=== PATIENT | female | born 1950 ===

== ENCOUNTER → 2022-10-21 14:04 | Outpatient (BNVA) | payer OTHER, SELFPAY | PROVIDERS: PCP Internal Medicine; Visit Provider Psychiatry & Neurology Neurology ==

== ENCOUNTER → 2022-11-25 19:30 | Outpatient (REF) | payer OTHER, SELFPAY | LOC: HO.SL 19:30 | PROVIDERS: Visit Provider Psychiatry & Neurology Neurology | DX: G47.10 Hypersomnia, unspecified (principal); G47.00 Insomnia, unspecified; R06.83 Snoring; G47.61 Periodic limb movement disorder | CPT/HCPCS: 95810 ==

== ENCOUNTER → 2022-11-25 21:16 | Outpatient (BNV) | payer OTHER, SELFPAY | PROVIDERS: Visit Provider Psychiatry & Neurology Neurology | DX: G47.61 Periodic limb movement disorder (principal) | CPT/HCPCS: 95810 ==

== ENCOUNTER 2023-01-21 11:01 | Outpatient (REF) | payer OTHER, SELFPAY ==
--- NOTE | ~2023-01-21 | MR_ITS ---
EXAMINATION: MR BRAIN WITHOUT CONTRAST CLINICAL INFORMATION: Dizziness. Patient off balance. Other symptoms and signs involving cognitive function and awareness. COMPARISON: None available. TECHNIQUE: Multiplanar, multisequence imaging of the brain was performed without contrast. FINDINGS: No diffusion abnormalities are identified to suggest an acute infarct. The ventricles are normal in size. No mass effect or midline shift is seen. Scattered mild white matter signal changes may be due to chronic microangiopathy. The brainstem and cerebellum are normal. There is a small homogeneous, dome-shaped, extra-axial mass along the inner cortical table of the high right frontal bone near the coronal suture measuring 9 mm in diameter. The gradient refocused acquisition demonstrates no pathologic magnetic susceptibility artifact to indicate underlying acute or chronic blood products. No extra-axial fluid collections are seen. The craniovertebral junction, marrow signal, and midline structures are normal. The major intracranial flow voids at the level of the [place] of [place] are preserved. The dural venous sinus flow voids are maintained. There is trace fluid in the dependent left mastoid air cells. [id number] mucosal thickening noted in the paranasal sinuses, more so in the right ethmoid air cells. MR/MR head/brain wo con IMPRESSION: No acute intracranial process. Mild chronic white matter microangiopathy. Incidental 9 mm homogeneous extra-axial nodular lesion along the high right frontal convexity which is nonspecific but is suspected to represent an incidental meningioma. No associated mass effect. [id number] mucosal thickening in the paranasal sinuses.
== END 2023-01-21 11:02 | disposition home or self-care (01) ==
LOC: HO.MRI 11:01
PROVIDERS: PCP Internal Medicine; Visit Provider Psychiatry & Neurology Neurology
DX: R41.89 Other symptoms and signs involving cognitive functions and awareness (principal)
CPT/HCPCS: 70551

== ENCOUNTER 2023-03-25 10:28 | Outpatient (AMB) | payer OTHER, SELFPAY ==
--- NOTE | 2023-03-25 10:32 | A.OFFVIS_ITS ---
Intake Vital Signs 03/25/23 10:44 Weight 110 lb 4 oz BP 120/80 Blood Pressure Location Lt brachial Position Sitting Pulse 74 Pulse Source Pulse Oximeter Pulse Oximetry (%) 99 Oxygen Delivery Method Room Air Intake Visit Reasons: 3m f/u Memory Decline - confirmed Intake Note: F/U Memory District Court Justice Required: Yes District Court Justice Name: Alla Allergies No Known Allergies Allergy (Verified 03/25/23 10:35) HPI HPI Comments History of Present Illness Details 73 y/o female patient presents for follo w up of cognitive problems. A certified supervisor cook house Nisreen [id number] helped with todays evaluation. She states that her memory has been improved. She still drive without problem. Pt has h/o depression and anxiety- she sees a therapist, and her mood is stable. She lives alone and has a PACKAGING ASSOCIATE 8 hrs a week. Her PACKAGING ASSOCIATE helps with cleaning, shopping, cooking etc. She reports she has memory issue especially when she is stressed. Brain MRI report reviewed. No acute intracranial process. Mild chronic white matter microangiopathy. Incidental 9 mm homogeneous extra-axial nodular lesion along the high right frontal convexity which is nonspecific but is suspected to represent an incidental meningioma. No associated mass effect. [id number] mucosal thickening in the paranasal sinuses. Pt has hx of a benign brain lesion which was not followed up. The PSG sleep study result was no evidence of sleep apnea. The AHI was less than 1/hr and oxygen lilliam was 91%. Lab result reviewed, TSH, B12, ESR was WNL. PFSH Medical History Insomnia Hypersomnia Snoring Cognitive decline Arthritis Atrial fibrillation Headache Depression GERD (gastroesophageal reflux disease) HTN (hypertension) Sleep disorder Coarse tremors Osteoporosis Family History Mother Colon cancer Father Prostate cancer Lung cancer Sister Cancer Daughter Cancer Social History Alcohol intake: never Patient Tobacco Use Status: Never used Tobacco Review of Systems Const All systems reviewed & are unremarkable except as noted in HPI and below Physical Exam Vital Signs: Last Vital Signs Pulse 74 03/25/23 10:44 BP 120/80 03/25/23 10:44 Pulse Ox 99 03/25/23 10:44 Oxygen Delivery Method Room Air 03/25/23 10:44 Const General: cooperative, healthy appearing, comfortable and no acute distress Nutritional Appearance: average body habitus Orientation/consciousness: patient oriented x3 Limitations: no limitations Neuro Other: Normal CLOCK DRAWING. General: patient oriented x3 Cranial nerves: Yes Facial sensation intact/muscles of mastication intact, Yes Nystagmus not present, Yes Normal facial strength present, Yes Midline tongue present and Yes Symmetric palate elevation present Cognition (Neuro): normal cognition Gait exam (Neuro): Antalgic gait present Motor exam (neuro): 5/5 motor strength present throughout and Normal motor muscle tone present throughout Deep tendon reflexes (DTR's): Right triceps reflex intensity grade: 2+, Left triceps reflex intensity grade: 2+, Rt Biceps (C5, C6): 2+, Left biceps reflex intensity grade: 2+, Right brachioradialis reflex intensity grade: 2+, Left brachioradialis reflex intensity grade: 2+, Right patellar reflex intensity grade: 3+, Left patellar reflex intensity grade: 3+, Right ankle reflex intensity grade: 3+ and Left ankle reflex intensity grade: 3+ Coordination: [id number] test normal Assessment & Plan Assessment & Plan (1) Cognitive decline: Comment: MCI vs mood related changes Code(s): R41.89 - Other symptoms and signs involving cognitive functions and awareness (2) Snoring: Code(s): R06.83 - Snoring (3) Hypersomnia: Code(s): G47.10 - Hypersomnia, unspecified (4) Insomnia: Code(s): G47.00 - Insomnia, unspecified Plan Continue to follow up with psychiatrist to stabilize mood. Will repeat brain MRI next year. Encouraged patient to increase physical and cognitive activities. Coding Level of Care Code Est Pt Level 4 (04518) Diagnoses Cognitive decline R41.89 Snoring R06.83 Hypersomnia G47.10 Insomnia G47.00
[2023-03-25 10:44] VITALS: BP 120/80; PULSE 74; O2SAT 99
== END 2023-03-25 10:57 | disposition home or self-care (01) ==
PROVIDERS: PCP Internal Medicine; Visit Provider Nurse Practitioner Family
DX: R41.89 Other symptoms and signs involving cognitive functions and awareness (principal); R06.83 Snoring; G47.10 Hypersomnia, unspecified; G47.00 Insomnia, unspecified
CPT/HCPCS: 99214

== ENCOUNTER → 2023-03-25 10:28 | Outpatient (BNVA) | payer OTHER, SELFPAY | PROVIDERS: PCP Internal Medicine; Visit Provider Nurse Practitioner Family | DX: R41.89 Other symptoms and signs involving cognitive functions and awareness (principal); G47.10 Hypersomnia, unspecified; R06.83 Snoring; G47.00 Insomnia, unspecified ==

== ENCOUNTER 2024-03-23 13:54 | Outpatient (AMB) | payer OTHER, SELFPAY ==
[2024-03-23 13:59] VITALS: BP 130/78; PULSE 66; O2SAT 97
--- NOTE | 2024-03-23 13:59 | A.OFFVIS_ITS ---
Vital Signs 03/23/24 13:59 Weight 99 lb BP 130/78 Blood Pressure Location Lt brachial Position Sitting Pulse 66 Pulse Source Pulse Oximeter Pulse Oximetry (%) 97 Oxygen Delivery Method Room Air Intake Visit Reasons: 1 yr f/u appt Second Hand Paper Machine Required: Yes Second Hand Paper Machine Name: Moriah Lopez Information Interpreted: non-clinical & clinical Accompanied by: Self / Same As Patient Allergies No Known Allergies Allergy (Verified 03/23/24 14:09) Medication List - Last Reconciled 03/23/24 by COOPER Allison apixaban (Eliquis) 5 mg PO BID cetirizine 10 mg PO DAILY cholecalciferol (vitamin D3) (Vitamin D3) 50 mcg PO DAILY citalopram 20 mg PO QAM fluticasone propionate 50 mcg/actuation 2 sprays intranasal DAILY gabapentin 300 mg PO BID ipratropium bromide 2 sprays intranasal BID lorazepam 0.5 mg PO QAM meclizine 12.5 mg PO TID PRN metoprolol succinate ER 150 mg PO DAILY mirabegron ER (Myrbetriq) 50 mg PO DAILY mirtazapine 15 mg PO BEDTIME pantoprazole 40 mg PO DAILY quetiapine 25 mg PO BEDTIME HPI Comments Details: 74-yr-old female presents for f/u visit of cognitive s/s and meningioma. Pt reports her cognition is stable. She states she is remembering things well. She is more concerned about the known intracranial meningioma. She had f/u MRI brain last week, which showed stable, if not slightly smaller, meningioma- now 0.7cm. Pt does endorse pain in the top of her head, as well as right sided head/facial pain a/w photophobia, phonophobia, nausea. These headaches occur almsot daily. She does endorse a history of migraine- though migraines used to be very severe in the past. She uses Tylenol prn- helps some but not fully. [facility] Medical History Insomnia Hypersomnia Snoring Cognitive decline Arthritis Atrial fibrillation Headache Depression GERD (gastroesophageal reflux disease) HTN (hypertension) Sleep disorder Coarse tremors Osteoporosis Family History Mother Colon cancer Father Prostate cancer Lung cancer Sister Cancer Daughter Cancer Social History Alcohol intake: never Patient Tobacco Use Status: Never used Tobacco Physical Exam Vital Signs: Last Vital Signs Pulse 66 03/23/24 13:59 BP 130/78 03/23/24 13:59 Pulse Ox 97 03/23/24 13:59 Oxygen Delivery Method Room Air 03/23/24 13:59 Const General: cooperative and no acute distress Orientation/consciousness: patient oriented x3 Resp Effort & Inspection: normal respiratory effort and able to speak in complete sentences Neuro Other: Mild palpable tenderness across vertex of head. General: patient oriented x3 Cranial nerves: Yes CN's II-XII intact bilaterally Cognition (Neuro): normal cognition Motor exam (neuro): 5/5 motor strength present throughout Psych Appearance: grossly normal Mental Status: mental status grossly normal Speech and movement: Normal speech and movement present Affect: normal affect Attitude: cooperative Assessment & Plan Assessment & Plan (1) Migraine without aura: Code(s): G43.009 - Migraine without aura, not intractable, without status migrainosus Category: Medical (2) Cognitive decline: Comment: MCI vs mood related changes Code(s): R41.89 - Other symptoms and signs involving cognitive functions and awareness Category: Medical (3) Intracranial meningioma: Comment: stable Code(s): D32.0 - Benign neoplasm of cerebral meninges Category: Medical Plan Reviewed brain MRI reports and previous brain MRI imaging- stable meningioma w/o mass effect. Monitor clinically. For overall headache management: It is important to practice good self-care, including but not limited to eating a healthy diet, drinking enough fluids (typically 64 oz per day), maintaining a good sleep routine, and engaging in regular physical activity (typically 30-45 minutes of moderate physical activity 5 days per week). For acute headache treatment: It is important to take as needed acute medications at the first sign of headache, however you want to avoid taking most as needed headache too often as this can lead to medication overuse/adaptation headaches. Trial Ubrogepant (Ubrelvy) 100mg tab, 1/2 - 1 tab (50-100mg) at onset of headache, may repeat in 2 hours. Max of 2 tabs (200mg) per 24 hours. May adjunct with OTC Tylenol 650mg q 4 hours prn. Potential adverse effects, include but are not limited to fatigue, nausea, dry mouth, constipation Previous acute migraine medication trials: None Acute migraine medication contraindications: All triptans, DHE d/t HTN, a-fib. NSAIDs d/t apixaban use. For headache prevention medication: Preventative medications should be taken routinely as prescribed for best effect, it may take several weeks to see full effect. Start Riboflavin 400mg qam Continue home Magnesium up to 400-500mg qhs Continue metoprolol succ ER 150mg qd- for HTN/a-fib. Previous migraine prevention medication trials: none other Migraine prevention medication contraindications: TCAs d/t a-fib dx. Medications: New riboflavin (vitamin B2) 400 mg PO DAILY 30 days 30 tabs 6RF ubrogepant (Ubrelvy) take at onset of migraine, may repeat in 2hrs (may take w/ Tylenol) 50 - 100 mg (0.5 - 1 x 100 mg) PO ONCE 30 days PRN 16 tabs 6RF migraine headache Coding Level of Care Code Est Pt Level 4 (29842) Diagnoses Migraine without aura G43.009 Cognitive decline R41.89 Intracranial meningioma D32.0
== END 2024-03-23 14:54 | disposition home or self-care (01) ==
LOC: HO.HSMS 13:54
PROVIDERS: PCP Internal Medicine; Visit Provider Nurse Practitioner Family
DX: G43.009 Migraine without aura, not intractable, without status migrainosus (principal); R41.89 Other symptoms and signs involving cognitive functions and awareness; D32.0 Benign neoplasm of cerebral meninges
CPT/HCPCS: 99214

== ENCOUNTER → 2024-03-23 13:54 | Outpatient (BNVA) | payer OTHER, SELFPAY | PROVIDERS: PCP Internal Medicine; Visit Provider Nurse Practitioner Family | DX: G43.009 Migraine without aura, not intractable, without status migrainosus (principal); R41.89 Other symptoms and signs involving cognitive functions and awareness; D32.0 Benign neoplasm of cerebral meninges | CPT/HCPCS: 99212 ==

== ENCOUNTER 2024-09-19 10:32 | Outpatient (AMB) | payer OTHER, SELFPAY ==
--- NOTE | 2024-09-19 10:39 | MHC.OFFVIS ---
Vital Signs 09/19/24 10:48 Height 5 ft Weight 103 lb BMI 20.1 BP 104/60 Blood Pressure Location Lt brachial Pulse 79 Pulse Source Pulse Oximeter Pulse Oximetry (%) 99 Oxygen Delivery Method Room Air Intake Visit Reasons: 6 mo f/u Intake Note: Patient presents 6 month follow up for Cognitive decline. Media Relations Director Required: Yes Media Relations Director Services: Media Relations Director Present Media Relations Director Name: Adam Hernanedz Accompanied by: Self / Same As Patient Allergies No Known Allergies Allergy (Verified 09/19/24 10:39) HPI Comments Details: 74-yr-old female presents for f/u visit of cognitive s/s and meningioma. 09/14/2024, patient underwent right lung- Flexible and robotic bronchoscopy for mild progression of cluster of nodules in the periphery of the right middle lobe. Patient states that results are pending. Pt is f/b [facility] pulmonology. Pt reports her cognition is stable. She states she is remembering things well. She feels her pulmonary and cardiac medication regimen helps her memory some, but may cause some tiredness Pt does endorse near daily headache, occurring in the top of her head, or right sided head/facial pain a/w photophobia, phonophobia, nausea. States she is not currently taking anything for her headache/migraine attacks. She never received the Ubrelvy, however is open to trying it. [facility] Medical History Insomnia Hypersomnia Snoring Cognitive decline Arthritis Atrial fibrillation Headache Depression GERD (gastroesophageal reflux disease) HTN (hypertension) Sleep disorder Coarse tremors Osteoporosis Family History Mother Colon cancer Father Prostate cancer Lung cancer Sister Cancer Daughter Cancer Social History Alcohol intake: never Patient Tobacco Use Status: Never used Tobacco Physical Exam Vital Signs: Last Vital Signs Pulse 79 09/19/24 10:48 BP 104/60 09/19/24 10:48 Pulse Ox 99 09/19/24 10:48 Oxygen Delivery Method Room Air 09/19/24 10:48 BMI result Body Mass Index 20.1 Const General: cooperative and no acute distress Orientation/consciousness: patient oriented x3 Resp Effort & Inspection: normal respiratory effort and able to speak in complete sentences Neuro General: patient oriented x3 Cranial nerves: Yes CN's II-XII intact bilaterally Cognition (Neuro): normal cognition Motor exam (neuro): 5/5 motor strength present throughout Psych Appearance: grossly normal Mental Status: mental status grossly normal Speech and movement: Normal speech and movement present Affect: normal affect Attitude: cooperative Assessment & Plan Assessment & Plan (1) Migraine without aura: Code(s): G43.009 - Migraine without aura, not intractable, without status migrainosus Category: Medical Qualifiers: Status migrainosus presence: without status migrainosus Intractability: not intractable Qualified Code(s): G43.009 - Migraine without aura, not intractable, without status migrainosus (2) Cognitive decline: Comment: MCI vs mood related changes Code(s): R41.89 - Other symptoms and signs involving cognitive functions and awareness Category: Medical (3) Intracranial meningioma: Comment: stable Code(s): D32.0 - Benign neoplasm of cerebral meninges Category: Medical Plan Brain MRI reports and previous brain MRI imaging- stable meningioma w/o mass effect. Monitor clinically. Plan for follow-up brain MRI to assess status of meningioma in fall. However, may consider repeating MRI sooner based on results of recent pulmonary testing. For overall headache management and cognition support: It is important to practice good self-care, including but not limited to eating a healthy diet, drinking enough fluids (typically 64 oz per day), maintaining a good sleep routine, and engaging in regular physical activity (typically 30-45 minutes of moderate physical activity 5 days per week). For acute headache treatment: It is important to take as needed acute medications at the first sign of headache, however you want to avoid taking most as needed headache too often as this can lead to medication overuse/adaptation headaches. Patient is again advised to trial Ubrogepant (Ubrelvy) 100mg tab, 1/2 - 1 tab (50-100mg) at onset of headache, may repeat in 2 hours. Max of 2 tabs (200mg) per 24 hours. May adjunct with OTC Tylenol 650mg q 4 hours prn. Potential adverse effects, include but are not limited to fatigue, nausea, dry mouth, constipation. We will recent order today Previous acute migraine medication trials: None Acute migraine medication contraindications: All triptans, DHE d/t HTN, a-fib. NSAIDs d/t apixaban use. For headache prevention medication: Preventative medications should be taken routinely as prescribed for best effect, it may take several weeks to see full effect. Continue Riboflavin 400mg qam Continue home Magnesium up to 400-500mg qhs- caused GI upset. Continue metoprolol succ ER 150mg qd- for HTN/a-fib. Previous migraine prevention medication trials: none other Migraine prevention medication contraindications: TCAs d/t a-fib dx. Will follow-up upon review of above and patient to follow-up in clinic in 6 months or sooner prn. Medications: Refilled ubrogepant (Ubrelvy) take at onset of migraine, may repeat in 2hrs (may take w/ Tylenol) 50 - 100 mg (0.5 - 1 x 100 mg) PO ONCE 30 days PRN 16 tabs 6RF migraine headache riboflavin (vitamin B2) 400 mg PO DAILY 30 days 30 tabs 11RF Coding Level of Care Code Est Pt Level 4 (00008) Diagnoses Migraine without aura and without status migrainosus, not intractable G43.009 Status migrainosus presence: without status migrainosus Intractability: not intractable Cognitive decline R41.89 Intracranial meningioma D32.0
[2024-09-19 10:48] VITALS: BP 104/60; PULSE 79; O2SAT 99; BMI 20.1
--- OUTSIDE RECORDS SUMMARY | 2024-09-19 11:55 | XMS_ITS ---
Author Name [facility] Organization Unknown Results Test Name/Text Value Interpretation Date Range Source Clinical Information In CYTO Normal [id number] [facility] Citation Ref Lab Test The technical components of this case were performed at [address] [address] CLIA # [id number] Normal [id number] [facility] History of Medication Use Medication Directions Dispensed Refills Start Date End Date Stat us sodium chloride 0.9 % flush 10 mL [Order 1 Start] Name: Insert peripheral IV Signed Summary: STAT, Once, On Thu09/14/24 at 0617, For 1 occurrence, Preprocedure [Order 1 End] [Order 2 Start] Name: Maintain IV access Signed Summary: Until discontinued, Starting on Thu09/14/24 at 0617, Until Specified, Preprocedure [Order 2 End] [Order 09/14/2024 active spironolactone (ALDACTONE) 25 mg tablet Take 0.5 tablets (12.5 mg total) by mouth 1 (one) time each day. 08/22/2024 active metoprolol succinate (TOPROL-XL) 100 mg 24 hr tablet TOME ALBERT Y MEDIA TABLETAS TODOS LOS BRANDON POR VIA ORAL 07/04/2024 aborted cetirizine (ZyrTEC) 10 mg tablet TAKE 1 TABLET BY MOUTH 1 TIME EACH DAY. 07/04/2024 active ondansetron ODT (ZOFRAN-ODT) 4 mg disintegrating tablet Dissolve 1 tablet (4 mg total) on top of the tongue every 8 (eight) hours if needed for nausea or vomiting. 06/14/2024 active bisacodyL (DULCOLAX) 5 mg EC tablet Take 2 tablets by mouth right before beginning bowel prep. See instructions provided by the office 04/06/2024 active polyethylene glycol (Golytely) 236-22.74-6.74 -5.86 gram solution Take 4L by mouth once for one dose. May substitue any PEG. Starting at 6PM the night before your procedure drink 1 8oz glasses at your own pace until you complete half of the gallon. Finish 2nd half of the gallon 5 hours before your procedure. 04/06/2024 active magnesium gluconate (MAG-G) 27 mg magnesium (500 mg) tablet 03/17/2024 active gabapentin (NEURONTIN) 300 mg capsule Take 1 capsule (300 mg total) by mouth at bedtime. 03/11/2024 active cholecalciferol (VITAMIN D-3) 50 mcg (2,000 unit) capsule Take 1 Capsule by mouth daily. 09/01/2023 active apixaban (Eliquis) 5 mg tablet TOME ALBERT TABLETA DOS VECES AL ELHAM 08/26/2023 active fluticasone propionate (FLONASE) 50 mcg/actuation nasal spray Administer 2 sprays into each nostril if needed. 07/03/2023 active triamcinolone (KENALOG) 0.5 % cream APLIQUE AL ELSIE AFECTADA DOS VECES AL D A CUANDO SEA NECESARIO 06/17/2023 active citalopram (CeleXA) 20 mg tablet TOME ALBERT TABLETA TODOS LOS D EN LA MA JANNY 12/15/2021 active mirtazapine (REMERON) 15 mg tablet Take 1 Tablet by mouth at bedtime. 09/18/2021 active ipratropium (ATROVENT) 21 mcg (0.03 %) nasal spray 1 Manning by Nasal route daily. 09/16/2021 active LORazepam (ATIVAN) 0.5 mg tablet Take 0.5 Tabs by mouth daily as needed for Anxiety. 03/17/2019 active QUEtiapine (SEROquel) 25 mg tablet TOME ALBERT TABLETA TODOS LOS D? AL ACOSTARSE 03/09/2019 active meclizine (ANTIVERT) 12.5 mg tablet Take by mouth as needed. active mirabegron (Myrbetriq) 50 mg tablet extended release 24 hr 24 hr tablet Take 1 tablet (50 mg total) by mouth 1 (one) time each day. active pantoprazole (PROTONIX) 40 mg EC tablet Take 1 tablet (40 mg total) by mouth 1 (one) time each day before breakfast. Do not crush, chew, or split. active Problems Problem Status Onset Date Problem Type Date of Resolution Source Pain active EncounterDiagnosisAct [facility] Chronic nausea active 2013-08-30 ProblemAct [facility] Rhinitis, allergic active 2013-05-30 ProblemAct [facility] Pulmonary nodule 1 cm or greater in diameter active 2022-06-20 ProblemAct [facility] Paroxysmal atrial fibrillation ([facility] V24, [facility] V28) active 2018-05-25 ProblemAct [facility] Dyspnea on exertion active 2021-10-29 ProblemAct [facility] Osteoporosis active 2024-04-04 ProblemAct [facility] Raynaud's syndrome without gangrene active 2015-07-19 ProblemAct [facility] Xerosis cutis active 2010-06-27 ProblemAct [facility] HTN (hypertension) active 2024-04-04 ProblemAct [facility] Meningioma ([facility] V24, [facility] V28) active 2017-09-17 ProblemAct [facility] Fibromyalgia active 2010-05-16 ProblemAct [facility] Severe major depression without psychotic features ([facility] V24, [facility] V28) active 2014-12-06 ProblemAct [facility] Abnormal chest CT active 2021-10-29 ProblemAct [facility] Vitamin D deficiency active 2010-08-27 ProblemAct [facility] Paroxysmal SVT (supraventricular tachycardia) ([facility] V24) active 2015-11-27 ProblemAct [facility] OAB (overactive bladder) active 2017-04-24 ProblemAct [facility] IBS (irritable colon syndrome) active 2012-06-09 ProblemAct [facility] Urine incontinence active 2010-06-27 ProblemAct [facility] Acid reflux active 2012-04-20 ProblemAct [facility] Immunizations Vaccine Date Source Lot Number Status Moderna SARS-CoV-2 COVID-19, mRNA, LNP-S, preservative free 05/26/2022 [facility] completed Influenza trivalent, 0.5mL ( Fluad) 65yo and older 03/24/2022 [id number] completed Td Tetanus diptheria (Tdvax) 7yo and older 09/18/2021 [facility] [id number] completed Moderna SARS-CoV-2 COVID-19, mRNA, LNP-S, preservative free 08/26/2021 [facility] [id number] completed Influenza trivalent, 0.5mL ( Fluad) 65yo and older 05/03/2021 [id number] completed Moderna SARS-CoV-2 COVID-19, mRNA, LNP-S, preservative free 04/09/2021 [facility] [id number] completed Moderna SARS-CoV-2 COVID-19, mRNA, LNP-S, preservative free 09/04/2020 [facility] [id number] completed Influenza trivalent, 0.5mL ( Fluad) 65yo and older 03/15/2020 [id number] completed Pneumococcal polysaccharide 23 valent (Pneumovax 23) 2yo and older 03/23/2019 [facility] [id number] com pleted Influenza Quadravalent, MDCK , 0.5ml, preservative free (Flucelvax) 6mo and older 03/17/2019 [facility] [id number] completed Influenza Quadravalent, MDCK , 0.5ml, preservative free (Flucelvax) 6mo and older 04/20/2018 [facility] [id number] completed Pneumococcal conjugate 13 va lent (Prevnar 13, PCV13) 2mo and older 11/23/2017 [facility] [id number] complet ed Influenza Quadravalent, MDCK , 0.5ml, with preservative (Flucelvax) 6mo and older 04/20/2017 [facility] [id number] completed Influenza trivalent, with pr eservative (Fluzone; Afluria) 6mo and older 04/03/2016 [facility] [id number] completed Influenza trivalent, with pr eservative (Fluzone; Afluria) 6mo and older 03/20/2015 [facility] [id number] completed Influenza trivalent, with pr eservative (Fluzone; Afluria) 6mo and older 02/20/2014 [facility] [id number] completed Influenza trivalent, with pr eservative (Fluzone; Afluria) 6mo and older 01/20/2013 [facility] [id number] completed Influenza trivalent, with pr eservative (Fluzone; Afluria) 6mo and older 03/26/2010 [facility] [id number] completed Tdap Tetanus diptheria acell ular pertussis (Boostrix; Adacel) 7yo and older 03/26/2010 [facility] [id number] completed Encounters Encounter Type Encounter Reason Primary Diagnosis Location Date Ambulatory Pain, unspecified Pain, unspecified [facility] 09/14/2024 Care Team Organization Name Specialty Phone Email Start Date End Da geraldine [facility] Primary [facility] 09/14/2024 [facility] 09/14/2024
--- OUTSIDE RECORDS SUMMARY | 2024-09-19 11:55 | XMS_ITS ---
Author Name MS. Tushar Daniel APRN Address [address] [place] [address] Phone [phone] [facility] Care Team Providers Care Ad Trafficker Name Role Phone Madina Daniel Unavailable [phone] Unavailable Unavailable [phone] Unavailable Unavailable [phone] BAMBI CEJA Unavailable [phone] Reason for Referral Not Available Allergies, adverse reactions, alerts No known allergies History of medication use Medication Class Instructions Start Date End Date Metoprolol Succinate ER 100 mg Tab ER 24hr TAKE 1 AND 1/2 TABLETS POR V A ORAL TODOS LOS D 2021-08-23 No Data Available Mirtazapine 15 mg Tab TOME ALBERT TABLETA T ODOS LOS D AL ACOSTARSE 2021-09-18 No Data Available QUEtiapine Fumarate 25 mg Tab TOME ALBERT T ABLETA TODOS LOS D AL ACOSTARSE 2021-09-18 No Data Available busPIRone 10 mg Tab TOME ALBERT TABLETA KATHRYN S VECES AL D A 2021-09-18 No Data Available Citalopram Hydrobromide 20 m g Tab TOME ALBERT TABLETA TODOS LOS D EN [place] 2021-09-18 No Data Available LORazepam 0.5 mg Tab TOME ALBERT TABLETA TO DOS LOS D EN [place] 2021-06-24 No Data Available Solifenacin Succinate 5 mg Tab TOME ALBERT TABLETA TODOS LOS D 2021-05-07 2022-03-25 Ipratropium Howell 0.03 % Solution SPRAY 2 SPRAYS INTO EACH NOSTRIL DOS VECES AL D A 2021-06-27 No Data Available VITAMIN D3 2,000 UNIT SOFTGEL TOME ALBERT C PSULA TODOS LOS D 2021-05-07 No Data Available Oxybutynin Chloride ER 10 mg Tab ER 24hr TOME ALBERT TABLETA TODOS LOS D 2021-08-14 No Data Available Amoxicillin 875 mg Tab TAKE 1 TABLET (OR AL) 2 TIMES PER DAY FOR 10 DAYS FOR INFECTION 2021-11-12 No Data Available Gabapentin 300 mg Cap TAKE 1 CAP IN THE MORNING AND 2 CAPSULE AT NIGHT 2021-11-13 No Data Available Eliquis 5 mg Tab TOME ALBERT TABLETA DOS VECES AL D A 2021-09-18 No Data Available Meclizine 12.5 mg Tab TAKE 1 TABLET BY M OUTH 3 TIMES DAILY NEEDED FOR DIZZINESS 2021-12-04 No Data Available Myrbetriq 50 mg Tab ER 24hr TOME ALBERT TAB KAT TODOS LOS D SAME TIME EVERY DAY 2021-12-13 No Data Available Tylenol Extra Strength 500 m g Tab 1 tab BID PRN pain 2022-03-25 No Data Available Bacitracin 500 UNIT/GM Oint APPLY TO AFF ECTED NAILS TWICE A DAY. 2022-07-02 No Data Available Betamethasone Valerate 0.1 % Oint APPLY TO LESION BEHIND LEFT KNEE TWICE A DAY 2022-07-02 No Data Available Pantoprazole Sodium 40 mg Ta b delayed rel TOME ALBERT TABLETA TODOS LOS D 2022-07-02 No Data Available Diclofenac Sodium 1 % Gel 2 GRAMS TOPICA LLY TO AFFECTED AREA 4 TIMES PER DAY CUANDO SEA NECESARIO 2022-11-19 No Data Available FLOWFLEX COVID-19 AG HOME TEST USE DIRECTED 2022-07-27 No Data Available Azithromycin 250 mg Tab TAKE 2 TABLETS B Y MOUTH FOR 1 DAY THEN, TAKE 1 TABLET BY MOUTH DAILY FOR 4 DAYS 2022-08-05 No Data Available Cetirizine 10 mg Tab TOME ALBERT TABLETA TO DOS LOS D 2022-09-25 No Data Available Nasonex 24HR 50 MCG/ACT Suspension Nasal 4 sprays intranasally daily (2 sprays in each nostril) 2023-02-13 No Data Available Mometasone Furoate 50 MCG/AC T Suspension Nasal ROCIAR 2 VECES EN CADA [place] DE [place] TODOS LOS BRAND[place] 2023-02-13 No Data Available Famotidine 20 mg Tab TOME ALBERT TABLETA TO DOS [place] BR[place] 2023-03-11 No Data Available Augmentin 875mg/125mg PO take 1 tablet by mouth BID 09-04-28 No Data Available Augmentin 875mg/125mg PO 1 tab orally tw ice daily with meals for 7 days 2023-04-14 No Data Available Triamcinolone Acetonide 0.5 % Crm 1 application topically to affected area 2 times per day as needed 2023-06-17 No Data Available MAGNESIUM GLUC 500 MG TABLET TOME ALBERT MARTÍNEZTA TODOS [place] 2023-07-10 No Data Available Problem List Problem Status Onset Date Resolved Date Passive suicidal ideations; Hx of suicide attempt Acti ve 2022-03-25 N/A Polypharmacy Active 2022-03-25 N/A Hypercoagulability due to atrial fibrillation Active 2022-03-25 N/A Vitamin D deficiency Active 2022-08-04 N/A Osteoarthritis, multiple sites Active 2022-11-19 N/A Non-seasonal allergic rhinit is due to other allergic trigger Active 2023-02-13 N/A Supraventricular tachycardia Active 2022-07-24 N/A GERD (gastroesophageal reflux disease) Active 08-08-19 N/A Other problems related to [facility] facilities and other health care Active 2023-06-05 N/A Chronic eczematous otitis externa of both ears Active 2023-06-17 N/A Chronic obstructive pulmonary disease, unspecified Act ayush 2022-07-24 N/A MDD (major depressive disord er), recurrent severe, without psychosis, Generalized Anxiety Disorder, Moderate, Grief Active 2022-03-25 N/A Urinary incontinence Active 2022-03-25 N/A Thoracic aortic aneurysm Active 2023-07-10 N/A OAB (overactive bladder) Active 2023-07-10 N/A Osteoporosis Active 2023-07-10 N/A Pulmonary nodule Active 2023-07-10 N/A Dementia Active 2023-07-10 N/A Benzodiazepine dependence, c ontinuous andChronic prescription benzodiazepine use Active 2022-03-25 N/A Encounters Encounters Type Facility Date of Service Diagnosis/Complaint Medication List Documented (1159F) [facility], ([place] Medication List Documented (1159F) [facility] Medication List Documented (1159F) [facility] [place] Medication List Documented (1159F) [facility] Major depressive disorder, r ecurrent severe without psychotic featuresGeneralized anxiety disorderAdjustment disorder with depressed moodUnspecified urinary incontinenceLong term (current) use of anticoagulantsParoxysmal atrial fibrillationSupraventricular tachycardiaOther half-way (current) drug therapySuicidal ideationsPersonal history of suicidal behaviorSedative, hypnotic or anxiolytic dependence, uncomplicated No Data Available [facility] Major depressive disorder, r ecurrent severe without psychotic featuresGeneralized anxiety disorderAdjustment disorder with depressed moodSedative, hypnotic or anxiolytic dependence, uncomplicatedOther watermaster (current) drug therapy Functional Status Assessed (1170F) [facility] [place] Functional Status Assessed (1170F) [facility] [place] Functional Status Assessed (1170F) [facility] [place] Functional Status Assessed (1170F) [facility] [place] Functional Status Assessed (1170F) [facility] Functional Status Assessed (1170F) [facility] Functional Status Assessed (1170F) [facility] [place] Functional Status Assessed (1170F) [facility] Major depressive disorder, r ecurrent severe without psychotic featuresGeneralized anxiety disorderAdjustment disorder with depressed moodSuicidal ideationsPersonal history of suicidal behaviorSedative, hypnotic or anxiolytic dependence, uncomplicatedOther thrombophiliaUnspecified atrial fibrillationUnspecified urinary incontinenceOther watermaster (current) drug therapy RN, CN or CP time with patient by phone; use with 1111F, BP, A1c or other CPTII codes [facility] Encounter for other specifie d aftercare RN, CN or CP time with patient by phone; use with 1111F, BP, A1c or other CPTII codes [facility] [place] No Data Available [facility] [place] Major depressive disorder, r ecurrent severe without psychotic featuresGeneralized anxiety disorderAdjustment disorder with depressed moodSuicidal ideationsPersonal history of suicidal behaviorSedative, hypnotic or anxiolytic dependence, uncomplicatedOther half-way (current) drug therapyOther thrombophiliaUnspecified atrial fibrillationUnspecified urinary incontinenceVitamin D deficiency, unspecifiedGastro-esophageal reflux disease without esophagitisChronic obstructive pulmonary disease, unspecifiedSupraventricular tachycardia No Data Available [facility] [place] No Data Available [facility] [place] No Data Available [facility] [place] No Data Available [facility] [place] No Data Available [facility] [place] No Data Available [facility] [place] No Data Available [facility] [place] Other thrombophiliaUnspecifi ed atrial fibrillationUnspecified urinary incontinenceSupraventricular tachycardia No Data Available [facility] [place] No Data Available [facility] [place] No Data Available [facility] [place] No Data Available [facility] [place] No Data Available [facility] [place] No Data Available [facility] [place] Major depressive disorder, r ecurrent severe without psychotic featuresGeneralized anxiety disorderAdjustment disorder with depressed moodSuicidal ideationsPersonal history of suicidal behaviorSedative, hypnotic or anxiolytic dependence, uncomplicatedOther watermaster (current) drug therapyOther thrombophiliaUnspecified atrial fibrillationUnspecified urinary incontinenceSupraventricular tachycardiaChronic obstructive pulmonary disease, unspecifiedGastro-esophageal reflux disease without esophagitisVitamin D deficiency, unspecified No Data Available [facility] [place] No Data Available [facility] No Data Available [facility] No Data Available [facility] No Data Available [facility] No Data Available [facility] Major depressive disorder, r ecurrent severe without psychotic featuresGeneralized anxiety disorderAdjustment disorder with depressed moodSuicidal ideationsPersonal history of suicidal behaviorSedative, hypnotic or anxiolytic dependence, uncomplicatedOther half-way (current) drug therapyOther thrombophiliaUnspecified atrial fibrillationUnspecified urinary incontinenceSupraventricular tachycardiaChronic obstructive pulmonary disease, unspecifiedGastro-esophageal reflux disease without esophagitisVitamin D deficiency, unspecifiedPolyosteoarthritis, unspecified No Data Available [facility]19[place] No Data Available [facility], ([place]) 11/19/2022 No Data Available [facility] No Data Available [facility] Estab. patient 30-39min; chronic exacerbation, 2 stable chronic or 1 acute illness add add modifier 95 for video, (do not use for phone, instead use [id number]) [facility], ([place] 12[place]/20[place] Major depressive disorder, r ecurrent severe without psychotic featuresGeneralized anxiety disorderAdjustment disorder with depressed moodSuicidal ideationsPersonal history of suicidal behaviorSedative, hypnotic or anxiolytic dependence, uncomplicatedOther watermaster (current) drug therapyOther thrombophiliaUnspecified atrial fibrillationUnspecified urinary incontinenceSupraventricular tachycardiaChronic obstructive pulmonary disease, unspecifiedGastro-esophageal reflux disease without esophagitisVitamin D deficiency, unspecifiedPolyosteoarthritis, unspecified Estab. patient 30-39min; chronic exacerbation, 2 stable chronic or 1 acute illness add add modifier 95 for video, (do not use for phone, instead use [id number]) [facility], ([place]) 12/11/20[place] Estab. patient 30-39min; chronic exacerbation, 2 stable chronic or 1 acute illness add add modifier 95 for video, (do not use for phone, instead use [id number]) [facility] Estab. patient 30-39min; chronic exacerbation, 2 stable chronic or 1 acute illness add add modifier 95 for video, (do not use for phone, instead use [id number]) [facility] Estab. patient 30-39min; chronic exacerbation, 2 stable chronic or 1 acute illness add add modifier 95 for video, (do not use for phone, instead use [id number]) [facility] Estab. patient 30-39min; chronic exacerbation, 2 stable chronic or 1 acute illness add add modifier 95 for video, (do not use for phone, instead use [id number]) [facility] Estab. patient 30-39min; chronic exacerbation, 2 stable chronic or 1 acute illness add add modifier 95 for video, (do not use for phone, instead use [id number]) [facility] Estab. patient 30-39min; chronic exacerbation, 2 stable chronic or 1 acute illness add add modifier 95 for video, (do not use for phone, instead use [id number]) [facility] Estab. patient 30-39min; chronic exacerbation, 2 stable chronic or 1 acute illness add add modifier 95 for video, (do not use for phone, instead use [id number]) [facility] Estab. patient 30-39min; chronic exacerbation, 2 stable chronic or 1 acute illness add add modifier 95 for video, (do not use for phone, instead use [id number]) [facility] No Data Available [facility]2023 Unspecified atrial fibrillat ionOther thrombophiliaSupraventricular tachycardiaMajor depressive disorder, recurrent severe without psychotic featuresChronic obstructive pulmonary disease, unspecifiedSedative, hypnotic or anxiolytic dependence, uncomplicatedGeneralized anxiety disorderAdjustment disorder with depressed moodSuicidal ideationsPersonal history of suicidal behaviorOther half-way (current) drug therapyUnspecified urinary incontinenceGastro-esophageal reflux disease without esophagitisVitamin D deficiency, unspecifiedPolyosteoarthritis, unspecifiedOther allergic rhinitis No Data Available [facility] 02[place]23 No Data Available [facility] Major depressive disorder, r ecurrent severe without psychotic featuresGeneralized anxiety disorderAdjustment disorder with depressed moodSuicidal ideationsPersonal history of suicidal behaviorSedative, hypnotic or anxiolytic dependence, uncomplicatedOther half-way (current) drug therapyOther thrombophiliaUnspecified atrial fibrillationUnspecified urinary incontinenceSupraventricular tachycardia, unspecifiedChronic obstructive pulmonary disease, unspecifiedGastro-esophageal reflux disease without esophagitisVitamin D deficiency, unspecifiedPolyosteoarthritis, unspecifiedOther allergic rhinitis No Data Available [facility] 03[place]20[place] No Data Available [facility] No Data Available [facility] No Data Available [facility] No Data Available [facility] No Data Available [facility] Major depressive disorder, r ecurrent severe without psychotic featuresGeneralized anxiety disorderAdjustment disorder with depressed moodSuicidal ideationsPersonal history of suicidal behaviorSedative, hypnotic or anxiolytic dependence, uncomplicatedOther half-way (current) drug therapyOther thrombophiliaUnspecified atrial fibrillationUnspecified urinary incontinenceSupraventricular tachycardia, unspecifiedChronic obstructive pulmonary disease, unspecifiedGastro-esophageal reflux disease without esophagitisVitamin D deficiency, unspecifiedPolyosteoarthritis, unspecifiedOther allergic rhinitisChronic sinusitis, unspecifiedOth bacterial agents as the cause of diseases classd elswhr No Data Available [facility] No Data Available [facility] No Data Available [facility]20[place] No Data Available [facility] No Data Available [facility] ([place] 04/14/20[place] No Data Available [facility] 06/17/2023 Major depressive disorder, r ecurrent severe without psychotic featuresGeneralized anxiety disorderAdjustment disorder with depressed moodSuicidal ideationsPersonal history of suicidal behaviorSedative, hypnotic or anxiolytic dependence, uncomplicatedOther half-way (current) drug therapyOther thrombophiliaUnspecified atrial fibrillationUnspecified urinary incontinenceSupraventricular tachycardia, unspecifiedChronic obstructive pulmonary disease, unspecifiedGastro-esophageal reflux disease without esophagitisVitamin D deficiency, unspecifiedPolyosteoarthritis, unspecifiedOther allergic rhinitisOther problems related to medical facilities and other health careOther otitis externa, bilateralBody mass index (BMI) 21.0-21.9, adult No Data Available [facility] ([place] 06/17/2023 No Data Available [facility] 06/17[place]20[place] No Data Available [facility] [place]/17[place]20[place] No Data Available [facility] [place]/17[place]2023 No Data Available [facility] [place] 06/17[place]20[place] No Data Available [facility] 06/17[place]20[place] No Data Available [facility] [place] 06/17/20[place] Estab. patient 30-39min; chronic exacerbation, 2 stable chronic or 1 acute illness add add modifier 95 for video, (do not use for phone, instead use [id number]) [facility], ([place] 07/10/2023 Major depressive disorder, r ecurrent severe without psychotic featuresGeneralized anxiety disorderAdjustment disorder with depressed moodSuicidal ideationsPersonal history of suicidal behaviorSedative, hypnotic or anxiolytic dependence, uncomplicatedOther watermaster (current) drug therapyOther thrombophiliaUnspecified atrial fibrillationUnspecified urinary incontinenceSupraventricular tachycardia, unspecifiedChronic obstructive pulmonary disease, unspecifiedGastro-esophageal reflux disease without esophagitisVitamin D deficiency, unspecifiedPolyosteoarthritis, unspecifiedOther allergic rhinitisOther problems related to medical facilities and other health careOther otitis externa, bilateralThoracic aortic aneurysm, without rupture, unspecifiedSolitary pulmonary noduleOveractive bladderAge-related osteoporosis without current pathological fractureUnspecified dementia without behavioral disturbance Estab. patient 30-39min; chronic exacerbation, 2 stable chronic or 1 acute illness add add modifier 95 for video, (do not use for phone, instead use [id number]) [facility], ([place] 07[place]20[place] Estab. patient 30-39min; chronic exacerbation, 2 stable chronic or 1 acute illness add add modifier 95 for video, (do not use for phone, instead use 83566-51) [facility] Estab. patient 30-39min; chronic exacerbation, 2 stable chronic or 1 acute illness add add modifier 95 for video, (do not use for phone, instead use 98574-23) [facility], ([place] 07/10/2023 Estab. patient 30-39min; chronic exacerbation, 2 stable chronic or 1 acute illness add add modifier 95 for video, (do not use for phone, instead use 87766-94) [facility], ([place] 07/10/2023 Estab. patient 30-39min; chronic exacerbation, 2 stable chronic or 1 acute illness add add modifier 95 for video, (do not use for phone, instead use [id number]) [facility] 07[place]/20[place] Estab. patient 30-39min; chronic exacerbation, 2 stable chronic or 1 acute illness add add modifier 95 for video, (do not use for phone, instead use [id number]) [facility], ([place]) 07/10/2023 Vital Signs Date of Collection Vitals 2022-04-09 07:26:57 Height - 154.94 cmWe ight - 48.99 kgBody Mass Index (BMI) - 20.41 kg/m2BP Diastolic - 80.0 mm[Hg]BP Systolic - 148.0 mm[Hg]Heart Rate - 79.0 /min 2022-07-28 08:02:42 Height - 154.94 cmWe ight - 48.99 kgBody Mass Index (BMI) - 20.41 kg/m2 2022-09-22 12:53:36 Height - 154.94 cmWe ight - 50.8 kgBody Mass Index (BMI) - 21.16 kg/m2BP Diastolic - 62.0 mm[Hg]BP Systolic - 90.0 mm[Hg]Pain Scale - 3.0 {score} 2022-10-20 08:20:36 Weight - 50.8 kgBody Mass Index (BMI) - 21.16 kg/m2BP Diastolic - 78.0 mm[Hg]BP Systolic - 89.0 mm[Hg]Heart Rate - 103.0 /min 2022-11-19 09:20:40 Weight - 50.8 kgBody Mass Index (BMI) - 21.16 kg/m2BP Diastolic - 89.0 mm[Hg]BP Systolic - 107.0 mm[Hg]Pain Scale - 4.0 {score} 2022-12-11 11:18:40 Weight - 50.8 kgBody Mass Index (BMI) - 21.16 kg/m2BP Diastolic - 67.0 mm[Hg]BP Systolic - 110.0 mm[Hg]Heart Rate - 70.0 /minPain Scale - 3.0 {score} 2023-03-11 07:47:33 Weight - 50.8 kgBody Mass Index (BMI) - 21.16 kg/m2BP Diastolic - 60.0 mm[Hg]BP Systolic - 139.0 mm[Hg]Heart Rate - 79.0 /min 2023-04-14 12:30:17 Weight - 50.8 kgBody Mass Index (BMI) - 21.16 kg/m2Pain Scale - 3.0 {score} 2023-06-17 11:34:19 Weight - 50.8 kgBody Mass Index (BMI) - 21.16 kg/m2BP Diastolic - 82.0 mm[Hg]BP Systolic - 132.0 mm[Hg] 2023-07-10 12:44:55 Weight - 50.8 kgBody Mass Index (BMI) - 21.16 kg/m2BP Diastolic - 82.0 mm[Hg]BP Systolic - 138.0 mm[Hg]Pain Scale - 1.0 {score} Social History Social History Social History Observation Description Effec tive Time Current Smoking Status Never smoker 7 Sex Female History of Procedures Procedures Service Procedure code Service date Servicing provider Phone# Medication List Documented (1159F) 1159F 2022-03-25 No Data Available No Data Griselda ilable Medication Review by prescribing provider or pharmacist documented (1160F) 1160F 2022-03-25 No Data Available No Data Griselda ilable Pain Assessment - Pain Documented on a Pain Scale (1125F) 1125F 2022-03-25 No Data Available No Data Griselda ilable No Data Available [id number] 2022-03-25 No Data Available No Data Available No Data Available [id number] 2022-04-03 No Data Available No Data Available Functional Status Assessed (1170F) 1170F 2022-04-09 No Data Available No Data Avail able Medication Review by prescribing provider or pharmacist documented (1160F) 1160F 2022-04-09 No Data Available No Data Griselda ilable Medication List Documented (1159F) 1159F 2022-04-09 No Data Available No Data Griselda ilable Pain Assessment - Pain Documented on a Pain Scale (1125F) 1125F 2022-04-09 No Data Available No Data Griselda ilable Advance Care Directive Advance care planning discussion documented in the medical record (1158F) 1158F 2022-04-09 No Data Available No Data Availa ble SBP >= 140 3077F 2022-04-09 No Data Available No Data Available DBP 80-89 (3079F) 3079F 2022-04-09 No Data Available No Data Available Estab. patient 20-29min; 1 stable chronic or 2 minor; add add modifier 95 for video, modifier 93 for phone [id number] 2022-04-09 No Data Available No Data Availa ble RN, CN or CP time with patient by phone; use with 1111F, BP, A1c or other CPTII codes 55752 2022-07-18 No Data Available No Data Avai lable Medications prescribed in hospital were reviewed and reconciled against what they were taking prior to admission during today's visit. (1111F) 1111F 2022-07-18 No Data Available No Data Availa ble No Data Available [id number] 2022-07-28 No Data Available No Data Available Medication List Documented (1159F) 1159F 2022-07-28 No Data Available No Data Griselda ilable Medication Review by prescribing provider or pharmacist documented (1160F) 1160F 2022-07-28 No Data Available No Data Grieslda ilable Functional Status Assessed (1170F) 1170F 2022-07-28 No Data Available No Data Avail able Pain Assessment - Pain Documented on a Pain Scale (1125F) 1125F 2022-07-28 No Data Available No Data Griselda ilable Advance Care Directive Advance care planning discussion documented in the medical record (1158F) 1158F 2022-07-28 No Data Available No Data Availa ble BMI obtained (3008F) 3008F 2022-07-28 No Data Availab le No Data Available No Data Available [id number] 2022-09-22 No Data Available No Data Available Medication List Documented (1159F) 1159F 2022-09-22 No Data Available No Data Griselda ilable SBP < 130 (3074F) 3074F 2022-09-22 No Data Available No Data Available DBP <80 (3078F) 3078F 2022-09-22 No Data Available No Data Available BMI obtained (3008F) 3008F 2022-09-22 No Data Availab le No Data Available Pain Assessment - Pain Documented on a Pain Scale (1125F) 1125F 2022-09-22 No Data Available No Data Griselda ilable No Data Available [id number] 2022-10-20 No Data Available No Data Available Medication List Documented (1159F) 1159F 2022-10-20 No Data Available No Data Griselda ilable Pain Assessment - NO pain present (1126F) 1126F 2022-10-20 No Data Available No Data A vailable BMI obtained (3008F) 3008F 2022-10-20 No Data Availab le No Data Available SBP < 130 (3074F) 3074F 2022-10-20 No Data Available No Data Available DBP <80 (3078F) 3078F 2022-10-20 No Data Available No Data Available No Data Available [id number] 2022-11-19 No Data Available No Data Available Pain Assessment - Pain Documented on a Pain Scale (1125F) 1125F 2022-11-19 No Data Available No Data Griselda ilable BMI obtained (3008F) 3008F 2022-11-19 No Data Availab le No Data Available Medication List Documented (1159F) 1159F 2022-11-19 No Data Available No Data Griselda ilable Functional Status Assessed (1170F) 1170F 2022-11-19 No Data Available No Data Avail able Estab. patient 30-39min; chronic exacerbation, 2 stable chronic or 1 acute illness add add modifier 95 for video, (do not use for phone, instead use [id number]) 30071 2022-12-11 No Data Available No Data Availa ble Medication List Documented (1159F) 1159F 2022-12-11 No Data Available No Data Griselda ilable Medication Review by prescribing provider or pharmacist documented (1160F) 1160F 2022-12-11 No Data Available No Data Griselda ilable Pain Assessment - Pain Documented on a Pain Scale (1125F) 1125F 2022-12-11 No Data Available No Data Griselda ilable BMI obtained (3008F) 3008F 2022-12-11 No Data Availab le No Data Available Advance Care Directive Advance care planning discussion documented in the medical record (1158F) 1158F 2022-12-11 No Data Available No Data Availa ble Advance care planning discussed and documented ? advance care plan or surrogate decision-maker was documented in the medical record. (1123F) 1123F 2022-12-11 No Data Available No Data Availa ble DBP <80 (3078F) 3078F 2022-12-11 No Data Available No Data Available SBP < 130 (3074F) 3074F 2022-12-11 No Data Available No Data Available Functional Status Assessed (1170F) 1170F 2022-12-11 No Data Available No Data Avail able No Data Available [id number] 2023-02-13 No Data Available No Data Available Medication List Documented (1159F) 1159F 2023-02-13 No Data Available No Data Griselda ilable No Data Available [id number] 2023-03-11 No Data Available No Data Available DBP <80 (3078F) 3078F 2023-03-11 No Data Available No Data Available SBP 130-139 (3075F) 3075F 2023-03-11 No Data Availabl e No Data Available Functional Status Assessed (1170F) 1170F 2023-03-11 No Data Available No Data Avail able Pain Assessment - NO pain present (1126F) 1126F 2023-03-11 No Data Available No Data A vailable BMI obtained (3008F) 3008F 2023-03-11 No Data Availab le No Data Available No Data Available [id number] 2023-04-14 No Data Available No Data Available Pain Assessment - Pain Documented on a Pain Scale (1125F) 1125F 2023-04-14 No Data Available No Data Griselda ilable Functional Status Assessed (1170F) 1170F 2023-04-14 No Data Available No Data Avail able Medication List Documented (1159F) 1159F 2023-04-14 No Data Available No Data Griselda ilable Advance Care Directive Advance care planning discussion documented in the medical record (1158F) 1158F 2023-04-14 No Data Available No Data Availa ble BMI obtained (3008F) 3008F 2023-04-14 No Data Availab le No Data Available No Data Available [id number] 2023-06-17 No Data Available No Data Available SBP 130-139 (3075F) 3075F 2023-06-17 No Data Availabl e No Data Available DBP 80-89 (3079F) 3079F 2023-06-17 No Data Available No Data Available BMI obtained (3008F) 3008F 2023-06-17 No Data Availab le No Data Available Functional Status Assessed (1170F) 1170F 2023-06-17 No Data Available No Data Avail able Pain Assessment - NO pain present (1126F) 1126F 2023-06-17 No Data Available No Data A vailable Medication List Documented (1159F) 1159F 2023-06-17 No Data Available No Data Griselda ilable Advance Care Directive Advance care planning discussion documented in the medical record (1158F) 1158F 2023-06-17 No Data Available No Data Availa ble Estab. patient 30-39min; chronic exacerbation, 2 stable chronic or 1 acute illness add add modifier 95 for video, (do not use for phone, instead use [id number]) 66465 2023-07-10 No Data Available No Data Availa ble Medication List Documented (1159F) 1159F 2023-07-10 No Data Available No Data Griselda ilable Medication Review by prescribing provider or pharmacist documented (1160F) 1160F 2023-07-10 No Data Available No Data Griselda ilable Pain Assessment - Pain Documented on a Pain Scale (1125F) 1125F 2023-07-10 No Data Available No Data Griselda ilable BMI obtained (3008F) 3008F 2023-07-10 No Data Availab le No Data Available DBP 80-89 (3079F) 3079F 2023-07-10 No Data Available No Data Available SBP 130-139 (3075F) 3075F 2023-07-10 No Data Availabl e No Data Available Functional Status Functional Category Effective Dates Cognition Status: x3 2022-08-04 ADL: Bathing Needs Assistanc e , Dressing Needs Assistance , Eating Independent , Ambulation Independent , Transferring Independent and Toileting Needs Assistance 2022-04-09 IADL: Medication Needs Jacklyn tance , Meal Prep Needs Assistance and Shopping Needs Assistance 2022-04-09 Falls in last 6 Months: no 2023-07-10 Mental Status Status Date aox3 2022-07-28 Assessments Date of Service Assessments 2022-03-25 12:43:34 Consulting w pharm d oc, consulting w psych doc, social work coordinator and CN aware of patient's status and will reach out.FU in 1 week for video callMDD (major depressive disorder), recurrent severe, without psychosis, Generalized Anxiety Disorder, Moderate, GriefPassive suicidal ideations; Hx of suicide attemptBenzodiazepine dependence, continuous; Chronic prescription benzodiazepine usePolypharmacyParoxysmal atrial fibrillation; Supraventricular tachycardia; AnticoagulatedUrinary incontinence 2022-04-09 07:26:57 MDD (major depressiv e disorder), recurrent severe, without psychosis, Generalized Anxiety Disorder, Moderate, Grief [F33.2, F41.1, F43.21]> PHQ-9: 19 - Moderately severe.JANNA-7: 13 - ModerateHas had grief/deaths in the family, several in the last 2-3 years f close relatives.Reports suicide attempt, distant, circa 2001. BuspironeCitalopramLorazepamMirtazapineQuetiapineSees or talks to therapist every other week, psych every 3 months.She is doing much better; her depression has lessened. Dtr Nadiya is with her and pt seems pleased about that.Spoke to psychiatrist's office re polypharmacy - RN will relay information to MD. She may not be able to see MD for several weeks or up to 2 months so she will ask her therapist to communicate w psychiatrist.Passive suicidal ideations; Hx of suicide attempt [R45.851, Z91.51]> Circa 1999 - tried to overdose/poison, was in hospital at least overnight. No attempts since.Denies plans, denies active thoughts.Safety plan:- When she has thoughts, tries to distract and occupy herself.- Thinks about her daughters - would not want to hurt them so would not go through with it to spare them the pain.- Emergency contacts, in crisis:-- Daughter Bambi Bentley - [phone]-- 988 suicide and crisis hotline - ask for Kazakh speaker-- Her sister Sister Trina lives next door -- [facility] -- Has friends from judaism whom she can call and on whom she leans.-- Contracts to reach out to us if she has active SIIn [place]:--[place]:- Cuando le den pensamientos malos, trate de distraerse.- Piense en xi hijas y melodie no quiere herirlas- Puede llamar:- 988 line especial de crisis, pida alguien en espanol- Plascencia hija Bambi Bentley - [phone]- Plascencia hermana Trina esta al lado- Xi amigas y amigos de la nazario- [facility] - Nos ponemos de acuerdo que nos va a llamar si tiene pensamientos de hacerse jacinta, y que va a venir a nuestra ileana la semana proxima.Benzodiazepine dependence, continuous; Chronic prescription benzodiazepine use [F13.20, Z81.116]> Safety concerns discussed at length.Risk of sedation discussed.Risk in using along w many other sedating medications.Pt verbalized understanding.She has a psychiatrist and a therapist.Consulting w pharm doc and psych MD.Polypharmacy [S67.953]> - Concern about taking multiple PRODUCTION SU[employer] CONSULTANT depressants, especially in a patient with PASSIVE SI ad a (distant) hx of suicide attempt by ingesting substances (20+ years ago). Patient has contracted for safety, has safety plan, denies active SI, denies suicide plan.- Concern about taking multiple Anticholinergic agents- Omeprazole may increase serum concentration of Citalopram. Per UpToDate: Limit citalopram dose to a maximum of 20 mg/day if used with omeprazole. Patients using this combination should be monitored closely for evidence of citalopram toxicity (eg, serotonin syndrome, QT prolongation, etc.). Patient is taking 20 mg Citalopram.- Consulting w Pharm Doc, consulting with Psych Doc. - Safety discussed w pt. She talks to psychiatris Q3 months, encouraging to speak to her sooner. FU w pt in 1 week, CN and Robotics Specialist aware. CN will reach out.Hypercoagulability due to atrial fibrillation [D68.69, I48.91]> On EliquisAware of anticoag risksUrinary incontinence [R32]> Taking MyrbetriqFollowed by [facility] 2022-07-28 08:02:42 MDD (major depressiv e disorder), recurrent severe, without psychosis, Generalized Anxiety Disorder, Moderate, GriefPassive suicidal ideations; Hx of suicide attemptBenzodiazepine dependence, continuous; Chronic prescription benzodiazepine usePolypharmacyHypercoagulability due to atrial fibrillationUrinary incontinenceVitamin D deficiencyGERD (gastroesophageal reflux disease)Chronic obstructive pulmonary disease, unspecifiedSupraventricular tachycardia 2022-09-22 12:53:36 Hypercoagulability d ue to atrial fibrillationUrinary incontinenceSupraventricular tachycardia 2022-10-20 08:20:36 MDD (major depressiv e disorder), recurrent severe, without psychosis, Generalized Anxiety Disorder, Moderate, GriefPassive suicidal ideations; Hx of suicide attemptBenzodiazepine dependence, continuous; Chronic prescription benzodiazepine usePolypharmacyHypercoagulability due to atrial fibrillationUrinary incontinenceSupraventricular tachycardiaChronic obstructive pulmonary disease, unspecifiedGERD (gastroesophageal reflux disease)Vitamin D deficiency 2022-11-19 09:20:40 MDD (major depressiv e disorder), recurrent severe, without psychosis, Generalized Anxiety Disorder, Moderate, GriefPassive suicidal ideations; Hx of suicide attemptBenzodiazepine dependence, continuous; Chronic prescription benzodiazepine usePolypharmacyHypercoagulability due to atrial fibrillationUrinary incontinenceSupraventricular tachycardiaChronic obstructive pulmonary disease, unspecifiedGERD (gastroesophageal reflux disease)Vitamin D deficiencyOsteoarthritis, multiple sites 2022-12-11 11:18:40 MDD (major depressiv e disorder), recurrent severe, without psychosis, Generalized Anxiety Disorder, Moderate, GriefPassive suicidal ideations; Hx of suicide attemptBenzodiazepine dependence, continuous; Chronic prescription benzodiazepine usePolypharmacyHypercoagulability due to atrial fibrillationUrinary incontinenceSupraventricular tachycardiaChronic obstructive pulmonary disease, unspecifiedGERD (gastroesophageal reflux disease)Vitamin D deficiencyOsteoarthritis, multiple sites 2023-02-13 13:01:55 MDD (major depressiv e disorder), recurrent severe, without psychosis, Generalized Anxiety Disorder, Moderate, GriefPassive suicidal ideations; Hx of suicide attemptBenzodiazepine dependence, continuous; Chronic prescription benzodiazepine usePolypharmacyHypercoagulability due to atrial fibrillationUrinary incontinenceSupraventricular tachycardiaChronic obstructive pulmonary disease, unspecifiedGERD (gastroesophageal reflux disease)Vitamin D deficiencyOsteoarthritis, multiple sitesNon-seasonal allergic rhinitis due to other allergic trigger 2023-03-11 07:47:33 MDD (major depressiv e disorder), recurrent severe, without psychosis, Generalized Anxiety Disorder, Moderate, GriefPassive suicidal ideations; Hx of suicide attemptBenzodiazepine dependence, continuous; Chronic prescription benzodiazepine usePolypharmacyHypercoagulability due to atrial fibrillationUrinary incontinenceSupraventricular tachycardiaChronic obstructive pulmonary disease, unspecifiedGERD (gastroesophageal reflux disease)Vitamin D deficiencyOsteoarthritis, multiple sitesNon-seasonal allergic rhinitis due to other allergic trigger 2023-04-14 12:30:17 MDD (major depressiv e disorder), recurrent severe, without psychosis, Generalized Anxiety Disorder, Moderate, GriefPassive suicidal ideations; Hx of suicide attemptBenzodiazepine dependence, continuous; Chronic prescription benzodiazepine usePolypharmacyHypercoagulability due to atrial fibrillationUrinary incontinenceSupraventricular tachycardiaChronic obstructive pulmonary disease, unspecifiedGERD (gastroesophageal reflux disease)Vitamin D deficiencyOsteoarthritis, multiple sitesNon-seasonal allergic rhinitis due to other allergic triggerBacterial sinusitis 2023-06-17 11:34:19 MDD (major depressiv e disorder), recurrent severe, without psychosis, Generalized Anxiety Disorder, Moderate, GriefPassive suicidal ideations; Hx of suicide attemptBenzodiazepine dependence, continuous; Chronic prescription benzodiazepine usePolypharmacyHypercoagulability due to atrial fibrillationUrinary incontinenceSupraventricular tachycardiaChronic obstructive pulmonary disease, unspecifiedGERD (gastroesophageal reflux disease)Vitamin D deficiencyOsteoarthritis, multiple sitesNon-seasonal allergic rhinitis due to other allergic triggerOther problems related to medical facilities and other health careChronic eczematous otitis externa of both ears 2023-07-10 12:44:55 MDD (major depressiv e disorder), recurrent severe, without psychosis, Generalized Anxiety Disorder, Moderate, GriefPassive suicidal ideations; Hx of suicide attemptBenzodiazepine dependence, continuous; Chronic prescription benzodiazepine usePolypharmacyHypercoagulability due to atrial fibrillationUrinary incontinenceSupraventricular tachycardiaChronic obstructive pulmonary disease, unspecifiedGERD (gastroesophageal reflux disease)Vitamin D deficiencyOsteoarthritis, multiple sitesNon-seasonal allergic rhinitis due to other allergic triggerOther problems related to medical facilities and other health careChronic eczematous otitis externa of both earsThoracic aortic aneurysmPulmonary noduleOAB (overactive bladder)OsteoporosisDementia Plan of Care Date of Service Plans 2022-03-25 12:43:34 Medication Review by prescribing provider or pharmacist documented (1160F)Medication List Documented (1159F)Pain Assessment - Pain Documented (1125F)Pain Assessment - Pain Documented (1125F)Televideo new patient,40-59min; chronic exacerbation, 2 stable chronic or 1 acute illness add modifier 95Continue to see PCP. Follow-up with [facility] as needed for any acute or disease education needs that may arise.PHQ-9: 19 - Moderately severe.JANNA-7: 13 - ModerateHas had grief/deaths in the family, several in the last 2-3 years f close relatives.Reports suicide attempt, distant, circa 2001. BuspironeCitalopramLorazepamMirtazapineQuetiapineSees or talks to therapist every other week, psych every 3 monthsCirca 1999 - tried to overdose/poison, was in hospital at least overnight. No attempts since.Denies plans, denies active thoughts.Safety plan:- When she has thoughts, tries to distract and occupy herself.- Thinks about her daughters - would not want to hurt them so would not go through with it to spare them the pain.- Emergency contacts, in crisis:-- Daughter Bambi Bentley - [phone]-- 988 suicide and crisis hotline - ask for Kazakh speaker-- Her sister Sister Trina lives next door -- Can call [facility] 08/12 at -- Has friends from judaism whom she can call and on whom she leans.-- Contracts to reach out to us if she has active SIIn [place]:--[place]:- Cuando le den pensamientos malos, trate de distraerse.- Piense en xi hijas y melodie no quiere herirlas- Puede llamar:- 988 line especial de crisis, pida alguien en espanol- Plascencia hija Bambi Bentley - [phone]- Plascencia hermana Trina esta al lado- Xi amigas y amigos de la nazario- [facility] - Nos ponemos de acuerdo que nos va a llamar si tiene pensamientos de hacerse jacinta, y que va a venir a nuestra ileana la semana proxima.Safety concerns discussed at length.Risk of sedation discussed.Risk in using along w many other sedating medications.Pt verbalized understanding.She has a psychiatrist and a therapist.Consulting w pharm doc and psych MD.- Concern about taking multiple [employer] SU[employer]SULTANT depressants, especially in a patient with PASSIVE SI ad a (distant) hx of suicide attempt by ingesting substances (20+ years ago). Patient has contracted for safety, has safety plan, denies active SI, denies suicide plan.- Concern about taking multiple Anticholinergic agents- Omeprazole may increase serum concentration of Citalopram. Per UpToDate: Limit citalopram dose to a maximum of 20 mg/day if used with omeprazole. Patients using this combination should be monitored closely for evidence of citalopram toxicity (eg, serotonin syndrome, QT prolongation, etc.). Patient is taking 20 mg Citalopram.- Consulting w Pharm Doc, consulting with Psych Doc. - Safety discussed w pt. She talks to psychiatris Q3 months, encouraging to speak to her sooner. FU w pt in 1 week, CN and Robotics Specialist aware. CN will reach out.On EliquisAware of anticoag risksTaking Venitallowed by [facility] 2022-04-09 07:26:57 As above.Will talk t o therapist re polypharmacy in order to get feedback from psychiatrist.Call [facility] if any issues or questions, 08/12.FU 1 month or PRN.All questions answered.1 mo 2022-07-28 08:02:42 Medication Review by prescribing provider or pharmacist documented (1160F)Medication List Documented (1159F)Functional Status Assessed (1170F)Advance Care Directive Advance care planning discussion documented in the medical record (1158F)BMI obtained (3008F)sbdbTelevideo 30-39min; chronic exacerbation, 2 stable chronic or 1 acute illness add modifier 95Pain Assessment - Pain Documented (1125F)Continue to see PCP. [facility] or disease education needs that may arise.PHQ-9: 19 - Moderately severe.JANNA-7: 13 - ModerateHas had grief/deaths in the family, several in the last 2-3 years f close relatives.Reports suicide attempt, distant, circa 2001. BuspironeCitalopramLorazepamMirtazapineQuetiapineSees or talks to therapist every other week, psych every 3 months.She is doing much better; her depression has lessened. Dtr Nadiya is with her and pt seems pleased about that.Spoke to psychiatrist's office re polypharmacy - RN will relay information to MD. She may not be able to see MD for several weeks or up to 2 months so she will ask her therapist to communicate w psychiatrist.Circa 1999 - tried to overdose/poison, was in hospital at least overnight. No attempts since.Denies plans, denies active thoughts.Safety plan:- When she has thoughts, tries to distract and occupy herself.- Thinks about her daughters - would not want to hurt them so would not go through with it to spare them the pain.- Emergency contacts, in crisis:-- Daughter Bambi Bentley - [phone]-- 771 suicide and crisis hotline - ask for Kazakh speaker-- Her sister Sister Trina lives next door -- Can call [facility] 08/12 at -- Has friends from judaism whom she can call and on whom she leans.-- Contracts to reach out to us if she has active SIIn [place]:--[place]AN [place]:- Cuando le den pensamientos malos, trate de distraerse.- Piense en xi hijas y melodie no quiere herirlas- Puede llamar:- 988 line especial de crisis, pida alguien en espanol- Plascencia hija Bambi Bentley - [phone]- Plascencia hermana Trina esta al lado- Xi amigas y amigos de la nazario- A [facility] a - Nos ponemos de acuerdo que nos va a llamar si tiene pensamientos de hacerse jacinta, y que va a venir a nuestra ileana la semana proxima.Safety concerns discussed at length.Risk of sedation discussed.Risk in using along w many other sedating medications.Pt verbalized understanding.She has a psychiatrist and a therapist.Consulting w pharm doc and psych MD.- Concern about taking multiple PR[employer] SU[employer]SULTANT depressants, especially in a patient with PASSIVE SI ad a (distant) hx of suicide attempt by ingesting substances (20+ years ago). Patient has contracted for safety, has safety plan, denies active SI, denies suicide plan.- Concern about taking multiple Anticholinergic agents- Omeprazole may increase serum concentration of Citalopram. Per UpToDate: Limit citalopram dose to a maximum of 20 mg/day if used with omeprazole. Patients using this combination should be monitored closely for evidence of citalopram toxicity (eg, serotonin syndrome, QT prolongation, etc.). Patient is taking 20 mg Citalopram.- Consulting w Pharm Doc, consulting with Psych Doc. - Safety discussed w pt. She talks to psychiatris Q3 months, encouraging to speak to her sooner. FU w pt in 1 week, CN and Robotics Specialist aware. CN will reach out.On EliquisAware of anticoag risksTaking MyrbetriqFollowed by [facility]RX: vitamin d supplement follows with PCPstable RX: omeprazole, protonixfollows with PulmRX: ipratropiumRX: metoprololstablefollows with cards 2022-09-22 12:53:36 Phone (patient, pare nt, or guardian); 5-10 minutes of medical discussion (no modifier 95)Continue to see PCP. Follow-up with [facility] as needed for any acute or disease education needs that may arise 08/12.On Eliquis, metoprololfollows with cards and PCPAware of anticoag risksTaking Myrbetriq, oxybutuninFollowed by UroRX: metoprololstablefollows with cards 2022-10-20 08:20:36 Phone (patient, pare nt, or guardian); 5-10 minutes of medical discussion (no modifier 95)Continue to see PCP. Follow-up with [facility] as needed for any acute or disease education needs that may arise 08/12.PHQ-9: 19 - Moderately severe.JANNA-7: 13 - ModerateHas had grief/deaths in the family, several in the last 2-3 years f close relatives.Reports suicide attempt, distant, circa 2001. BuspironeCitalopramLorazepamMirtazapineQuetiapineSees or talks to therapist every other week, psych every 3 months.She is doing much better; her depression has lessened. Dtr Nadiya is with her and pt seems pleased about that.Circa 1999 - tried to overdose/poison, was in hospital at least overnight. No attempts since.Denies plans, denies active thoughts.Safety plan:- When she has thoughts, tries to distract and occupy herself.- Thinks about her daughters - would not want to hurt them so would not go through with it to spare them the pain.- Emergency contacts, in crisis:-- Daughter Bambi Bentley - [phone]-- [phone] suicide and crisis hotline - ask for Kazakh speaker-- Her sister Sister Trina lives next door -- Can call [facility] 08/12 at -- Has friends from judaism whom she can call and on whom she leans.-- Contracts to reach out to us if she has active SIIn [place]:--[place]:- Cuando le den pensamientos malos, trate de distraerse.- Piense en xi hijas y melodie no quiere herirlas- Puede llamar:- 988 line especial de crisis, pida alguien en espanol- Plascencia hija Bambi Bentley - [phone]- Plascencia hermana Trina esta al lado- Xi amigas y amigos de la nazario- A [facility] a - Nos ponemos de acuerdo que nos va a llamar si tiene pensamientos de hacerse jacinta, y que va a venir a nuestra ileana la semana proxima.Safety concerns discussed at length.Risk of sedation discussed.Risk in using along w many other sedating medications.Pt verbalized understanding.She has a psychiatrist and a therapist.Consulting w pharm doc and psych MD.RX: lorazepam- Concern about taking multiple PRODUCTION SU[employer] CONSULTANT depressants, especially in a patient with PASSIVE SI ad a (distant) hx of suicide attempt by ingesting substances (20+ years ago). Patient has contracted for safety, has safety plan, denies active SI, denies suicide plan.- Concern about taking multiple Anticholinergic agents- Omeprazole may increase serum concentration of Citalopram. Per UpToDate: Limit citalopram dose to a maximum of 20 mg/day if used with omeprazole. Patients using this combination should be monitored closely for evidence of citalopram toxicity (eg, serotonin syndrome, QT prolongation, etc.). Patient is taking 20 mg Citalopram.- Consulting w Pharm Doc, consulting with Psych Doc. - Safety discussed w pt. She talks to psychiatris Q3 months, encouraging to speak to her sooner. FU w pt in 1 week, CN and Robotics Specialist aware. CN will reach out.On Eliquis, metoprololfollows with cards and PCPAware of anticoag risksTaking Myrbetriq, oxybutuninFollowed by [facility]: metoprololstablefollows with cards10/20/22: reports low bp/symptomatic x 1 week. Denies CP or SOB. reports she finished a holter monitor 2 week series before symptoms occurred. Advised to call cardiology today and make in person appointment for urgent evaluation. SHe is compliant with metoprololfollows with PulmRX: ipratropiumstable RX: omeprazole, protonixRX: vitamin d supplement follows with PCP 2022-11-19 09:20:40 Phone (patient, pare nt, or guardian); 5-10 minutes of medical discussion (no modifier 95)Continue to see PCP. Follow-up with [facility] as needed for any acute or disease education needs that may arise 08/12.PHQ-9: 19 - Moderately severe.JANNA-7: 13 - ModerateHas had grief/deaths in the family, several in the last 2-3 years f close relatives.Reports suicide attempt, distant, circa 2001. BuspironeCitalopramLorazepamMirtazapineQuetiapineSees or talks to therapist every other week, psych every 3 months.She is doing much better; her depression has lessened. Dtr Nadiya is with her and pt seems pleased about that.Circa 1999 - tried to overdose/poison, was in hospital at least overnight. No attempts since.Denies plans, denies active thoughts.Safety plan:- When she has thoughts, tries to distract and occupy herself.- Thinks about her daughters - would not want to hurt them so would not go through with it to spare them the pain.- Emergency contacts, in crisis:-- Daughter Bambi Bentley - [phone]-- 988 suicide and crisis hotline - ask for Kazakh speaker-- Her sister Sister Trina lives next door -- Can call [facility] 08/12 at -- Has friends from judaism whom she can call and on whom she leans.-- Contracts to reach out to us if she has active SIIn [place]:--PLAN DE SEGURIDAD:- Cuando le den pensamientos malos, trate de distraerse.- Piense en xi hijas y melodie no quiere herirlas- Puede llamar:- 988 line especial de crisis, pida alguien en espanol- Plascencia hija Bambi Bentley - [phone]- Plascencia hermana Trina esta al lado- Xi amigas y amigos de la nazario- A [facility] a - Nos ponemos de acuerdo que nos va a llamar si tiene pensamientos de hacerse jacinta, y que va a venir a nuestra ileana la semana proxima.Safety concerns discussed at length.Risk of sedation discussed.Risk in using along w many other sedating medications.Pt verbalized understanding.She has a psychiatrist and a therapist.Consulting w pharm doc and psych MD.RX: lorazepam- Concern about taking multiple PR[employer] SU[employer] CONSULTANT depressants, especially in a patient with PASSIVE SI ad a (distant) hx of suicide attempt by ingesting substances (20+ years ago). Patient has contracted for safety, has safety plan, denies active SI, denies suicide plan.- Concern about taking multiple Anticholinergic agents- Omeprazole may increase serum concentration of Citalopram. Per UpToDate: Limit citalopram dose to a maximum of 20 mg/day if used with omeprazole. Patients using this combination should be monitored closely for evidence of citalopram toxicity (eg, serotonin syndrome, QT prolongation, etc.). Patient is taking 20 mg Citalopram.- Consulting w Pharm Doc, consulting with Psych Doc. - Safety discussed w pt. She talks to psychiatris Q3 months, encouraging to speak to her sooner. FU w pt in 1 week, CN and Robotics Specialist aware. CN will reach out.On Eliquis, metoprololfollows with cards and PCPAware of anticoag risksTaking Myrbetriq, oxybutuninFollowed by [facility]: metoprololstablefollows with cards10/20/22: reports low bp/symptomatic x 1 week. Denies CP or SOB. reports she finished a holter monitor 2 week series before symptoms occurred. Advised to call cardiology today and make in person appointment for urgent evaluation. SHe is compliant with metoprolol 11/19/22: BP much improved, continues to f/u with cardiology.follows with Pulm[facility]: ipratropiumstable RX: omeprazole, protonixRecommend famotidine 20 mg twice daily as needed for dyspepsia-- Smoking cessation encouranged-- Dietary and life style changes encouraged-- Calcium/Vit D and osteoporosis surveillance stressed-- Risk of watermaster PPI use discussed-- Antireflux diet: avoid tomatoes, citrus fruits, carbonated or caffeinated beverages, chocolate, peppermints, fatty foods.-- Elevate head of bed 6 on a brick or telephone book-- Do not eat within 4 hours of bedtime-- Strict diabetic monitoring and managementRX: vitamin d supplement follows with PCP11/19/22: rx for paulo today 2022-12-11 11:18:40 Medication Review by prescribing provider or pharmacist documented (1160F)Medication List Documented (1159F)Functional Status Assessed (1170F)Advance Care Directive Advance care planning discussion documented in the medical record (1158F)BMI obtained (3008F)SBP < 130 (3074F)DBP <80 (3078F)Televideo 30-39min; chronic exacerbation, 2 stable chronic or 1 acute illness add modifier 95Advance care planning discussed and documented ? advance care plan or surrogate decision-maker was documented in the medical record. (1123F)Pain Assessment - Pain Documented (1125F)Continue to see PCP. Follow-up with [facility] as needed for any acute or disease education needs that may arise.PHQ-9: 19 - Moderately severe.JANNA-7: 13 - ModerateHas had grief/deaths in the family, several in the last 2-3 years f close relatives.Reports suicide attempt, distant, circa 2001. BuspironeCitalopramLorazepamMirtazapineQuetiapineSees or talks to therapist every other week, psych every 3 months.She is doing much better; her depression has lessened. Dtr Nadiya is with her and pt seems pleased about that.Circa 1999 - tried to overdose/poison, was in hospital at least overnight. No attempts since.Denies plans, denies active thoughts.Safety plan:- When she has thoughts, tries to distract and occupy herself.- Thinks about her daughters - would not want to hurt them so would not go through with it to spare them the pain.- Emergency contacts, in crisis:-- Daughter Bambi Bentley - [phone]-- 701 suicide and crisis hotline - ask for Kazakh speaker-- Her sister Sister Trina lives next door -- Can call [facility] 08/12 at -- Has friends from judaism whom she can call and on whom she leans.-- Contracts to reach out to us if she has active SIIn [place]:--PLAN DE SEGURIDAD:- Cuando le den pensamientos malos, trate de distraerse.- Piense en xi hijas y melodie no quiere herirlas- Puede llamar:- 988 line especial de crisis, pida alguien en espanol- Plascencia hija Bambi Bentley - [phone]- Plascencia hermana Trina esta al lado- Xi amigas y amigos de la nazario- [facility] - Nos ponemos de acuerdo que nos va a llamar si tiene pensamientos de hacerse jacinta, y que va a venir a nuestra ileana la semana proxima.Safety concerns discussed at length.Risk of sedation discussed.Risk in using along w many other sedating medications.Pt verbalized understanding.She has a psychiatrist and a therapist.Consulting w pharm doc and psych MD.RX: lorazepam- Concern about taking multiple [employer] SU[employer]ANT depressants, especially in a patient with PASSIVE SI ad a (distant) hx of suicide attempt by ingesting substances (20+ years ago). Patient has contracted for safety, has safety plan, denies active SI, denies suicide plan.- Concern about taking multiple Anticholinergic agents- Omeprazole may increase serum concentration of Citalopram. Per UpToDate: Limit citalopram dose to a maximum of 20 mg/day if used with omeprazole. Patients using this combination should be monitored closely for evidence of citalopram toxicity (eg, serotonin syndrome, QT prolongation, etc.). Patient is taking 20 mg Citalopram.- Consulting w Pharm Doc, consulting with Psych Doc. - Safety discussed w pt. She talks to psychiatris Q3 months, encouraging to speak to her sooner. FU w pt in 1 week, CN and Robotics Specialist aware. CN will reach out.On Eliquis, metoprololfollows with cards and PCPAware of anticoag risksTaking Myrbetriq, oxybutuninFollowed by [facility]: metoprololstablefollows with cards10/20/22: reports low bp/symptomatic x 1 week. Denies CP or SOB. reports she finished a holter monitor 2 week series before symptoms occurred. Advised to call cardiology today and make in person appointment for urgent evaluation. SHe is compliant with metoprolol 12/11/22: BP much improved, continues to f/u with cardiology. Dr. Elizabeth Hernandez with PulmRX: ipratropiumstable RX: omeprazole, protonixRecommend famotidine 20 mg twice daily as needed for dyspepsia-- Smoking cessation encouranged-- Dietary and life style changes encouraged-- Calcium/Vit D and osteoporosis surveillance stressed-- Risk of watermaster PPI use discussed-- Antireflux diet: avoid tomatoes, citrus fruits, carbonated or caffeinated beverages, chocolate, peppermints, fatty foods.-- Elevate head of bed 6 on a brick or telephone book-- Do not eat within 4 hours of bedtime-- Strict diabetic monitoring and managementRX: vitamin d supplement follows with PCP12/09/22: rx for volataren today last fall 11/13 [facility]y [facility] [address], [place] [address]Jeaeo: 2023-02-13 13:01:55 Phone (patient, pare nt, or guardian); 5-10 minutes of medical discussion (no modifier 95)Continue to see PCP. Follow-up with [facility] as needed for any acute or disease education needs that may arise 08/12.PHQ-9: 19 - Moderately severe.JANNA-7: 13 - ModerateHas had grief/deaths in the family, several in the last 2-3 years f close relatives.Reports suicide attempt, distant, circa 2001. BuspironeCitalopramLorazepamMirtazapineQuetiapineSees or talks to therapist every other week, psych every 3 months.She is doing much better; her depression has lessened. 12/11/22: new Psychiatry Jihan García 1999 - tried to overdose/poison, was in hospital at least overnight. No attempts since.Denies plans, denies active thoughts.Safety plan:- When she has thoughts, tries to distract and occupy herself.- Thinks about her daughters - would not want to hurt them so would not go through with it to spare them the pain.- Emergency contacts, in crisis:-- Daughter Bambi Bentley - [phone]-- 988 suicide and crisis hotline - ask for Kazakh speaker-- Her sister Sister Trina lives next door -- Can call [facility] 08/12 at -- Has friends from judaism whom she can call and on whom she leans.-- Contracts to reach out to us if she has active SIIn [place]:--PLAN DE SEGURIDAD:- Cuando le den pensamientos malos, trate de distraerse.- Piense en xi hijas y melodie no quiere herirlas- Puede llamar:- 988 line especial de crisis, pida alguien en espanol- Plascencia hija Bambi Bentley - [phone]- Plsacencia hermana Trina esta al lado- Xi amigas y amigos de la nazario- [facility] - Nos ponemos de acuerdo que nos va a llamar si tiene pensamientos de hacerse jacinta, y que va a venir a nuestra ileana la semana proxima.Safety concerns discussed at length.Risk of sedation discussed.Risk in using along w many other sedating medications.Pt verbalized understanding.She has a psychiatrist and a therapist.Consulting w pharm doc and psych MD.RX: lorazepam- Concern about taking multiple PR[employer] SU[employer] depressants, especially in a patient with PASSIVE SI ad a (distant) hx of suicide attempt by ingesting substances (20+ years ago). Patient has contracted for safety, has safety plan, denies active SI, denies suicide plan.- Concern about taking multiple Anticholinergic agents- Omeprazole may increase serum concentration of Citalopram. Per UpToDate: Limit citalopram dose to a maximum of 20 mg/day if used with omeprazole. Patients using this combination should be monitored closely for evidence of citalopram toxicity (eg, serotonin syndrome, QT prolongation, etc.). Patient is taking 20 mg Citalopram.- Consulting w Pharm Doc, consulting with Psych Doc. - Safety discussed w pt. She talks to psychiatris Q3 months, encouraging to speak to her sooner. FU w pt in 1 week, CN and Robotics Specialist aware. CN will reach out.On Eliquis, metoprololfollows with cards and PCPAware of anticoag risksTaking Myrbetriq, oxybutuninFollowed by [facility]: metoprololstablefollows with cards10/20/22: reports low bp/symptomatic x 1 week. Denies CP or SOB. reports she finished a holter monitor 2 week series before symptoms occurred. Advised to call cardiology today and make in person appointment for urgent evaluation. SHe is compliant with metoprolol 12/11/22: BP much improved, continues to f/u with cardiology. Dr. Elizabeth Baileyfovickyows with PulmRX: ipratropiumstable RX: omeprazole, protonixRecommend famotidine 20 mg twice daily as needed for dyspepsia-- Smoking cessation encouranged-- Dietary and life style changes encouraged-- Calcium/Vit D and osteoporosis surveillance stressed-- Risk of watermaster PPI use discussed-- Antireflux diet: avoid tomatoes, citrus fruits, carbonated or caffeinated beverages, chocolate, peppermints, fatty foods.-- Elevate head of bed 6 on a brick or telephone book-- Do not eat within 4 hours of bedtime-- Strict diabetic monitoring and managementRX: vitamin d supplement follows with PCP12/09/22: rx for volataren today last fall 11/13 referral [facility] -[facility]steady [facility] [address] [place] [address]Pdtij: [phone]: Started PT yesterdaytried flonase and claritin without releifstart nasonex 2023-03-11 07:47:33 Phone (patient, pare nt, or guardian); 5-10 minutes of medical discussion (no modifier 95)SBP 130-139 (3075F)DBP <80 (3078F)Continue to see PCP. Follow-up with [facility] as needed for any acute or disease education needs that may arise 08/12.PHQ-9: 19 - Moderately severe.JANNA-7: 13 - ModerateHas had grief/deaths in the family, several in the last 2-3 years f close relatives.Reports suicide attempt, distant, circa 2001. BuspironeCitalopramLorazepamMirtazapineQuetiapineSees or talks to therapist every other week, psych every 3 months.She is doing much better; her depression has lessened. 12/11/22: new Psychiatry Jihan Raquel 1999 - tried to overdose/poison, was in hospital at least overnight. No attempts since.Denies plans, denies active thoughts.Safety plan:- When she has thoughts, tries to distract and occupy herself.- Thinks about her daughters - would not want to hurt them so would not go through with it to spare them the pain.- Emergency contacts, in crisis:-- Daughter Bambi Bentley - [phone]-- 988 suicide and crisis hotline - ask for Kazakh speaker-- Her sister Sister Trina lives next door -- [facility] -- Has friends from judaism whom she can call and on whom she leans.-- Contracts to reach out to us if she has active SIIn [place]:--PLAN DE SEGURIDAD:- Cuando le den pensamientos malos, trate de distraerse.- Piense en xi hijas y melodie no quiere herirlas- Puede llamar:- 988 line especial de crisis, pida alguien en espanol- Plascencia hija Bambi Bentley - [phone]- Plascencia hermana Trina esta al lado- Xi amigas y amigos de la nazario- [facility] - Nos ponemos de acuerdo que nos va a llamar si tiene pensamientos de hacerse jacinta, y que va a venir a nuestra ileana la semana proxima.Safety concerns discussed at length.Risk of sedation discussed.Risk in using along w many other sedating medications.Pt verbalized understanding.She has a psychiatrist and a therapist.Consulting w pharm doc and psych MD.RX: lorazepam- Concern about taking multiple [employer] SU[employer] depressants, especially in a patient with PASSIVE SI ad a (distant) hx of suicide attempt by ingesting substances (20+ years ago). Patient has contracted for safety, has safety plan, denies active SI, denies suicide plan.- Concern about taking multiple Anticholinergic agents- Omeprazole may increase serum concentration of Citalopram. Per UpToDate: Limit citalopram dose to a maximum of 20 mg/day if used with omeprazole. Patients using this combination should be monitored closely for evidence of citalopram toxicity (eg, serotonin syndrome, QT prolongation, etc.). Patient is taking 20 mg Citalopram.- Consulting w Pharm Doc, consulting with Psych Doc. - Safety discussed w pt. She talks to psychiatris Q3 months, encouraging to speak to her sooner. FU w pt in 1 week, CN and Robotics Specialist aware. CN will reach out.On Eliquis, metoprololfollows with cards and PCPAware of anticoag risksTaking Myrbetriq, oxybutuninFollowed by [facility]: metoprololstablefollows with cards10/20/22: reports low bp/symptomatic x 1 week. Denies CP or SOB. reports she finished a holter monitor 2 week series before symptoms occurred. Advised to call cardiology today and make in person appointment for urgent evaluation. SHe is compliant with metoprolol 12/11/22: BP much improved, continues to f/u with cardiology. Dr. Elizabeth Hernandez with PulmRX: ipratropiumstable RX: kklmekhm28/25/23: increased sour stomach PLAN: add famotidine to PPIRecommend famotidine 20 mg twice daily as needed for dyspepsia-- Smoking cessation encouranged-- Dietary and life style changes encouraged-- Calcium/Vit D and osteoporosis surveillance stressed-- Risk of watermaster PPI use discussed-- Antireflux diet: avoid tomatoes, citrus fruits, carbonated or caffeinated beverages, chocolate, peppermints, fatty foods.-- Elevate head of bed 6 on a brick or telephone book-- Do not eat within 4 hours of bedtime-- Strict diabetic monitoring and managementRX: vitamin d supplement follows with PCP12/09/22: rx for volataren today last fall 11/13 referral [facility] -unsteady gait [facility] [address] [place] [address]Qgzvl: [phone]: Started PT yesterdaytried flonase and claritin without releifstart nasonex 2023-04-14 12:30:17 Phone (patient, pare nt, or guardian); 5-10 minutes of medical discussion (no modifier 95)Continue to see PCP. [facility] with [facility] as needed for any acute or disease education needs that may arise 08/12.PHQ-9: 19 - Moderately severe.JANNA-7: 13 - ModerateHas had grief/deaths in the family, several in the last 2-3 years f close relatives.Reports suicide attempt, distant, circa 2001. BuspironeCitalopramLorazepamMirtazapineQuetiapineSees or talks to therapist every other week, psych every 3 months.She is doing much better; her depression has lessened. 12/11/22: new Psychiatry Jihan Raquel 1999 - tried to overdose/poison, was in hospital at least overnight. No attempts since.Denies plans, denies active thoughts.Safety plan:- When she has thoughts, tries to distract and occupy herself.- Thinks about her daughters - would not want to hurt them so would not go through with it to spare them the pain.- Emergency contacts, in crisis:-- Daughter Bambi Bentley - [phone]-- 988 suicide and crisis hotline - ask for Kazakh speaker-- Her sister Sister Trina lives next door -- [facility] call [facility] 08/12 at -- Has friends from judaism whom she can call and on whom she leans.-- Contracts to reach out to us if she has active SIIn [place]:--PLAN DE SEGURID[place]:- Cuando le den pensamientos malos, trate de distraerse.- Piense en xi hijas y melodie no quiere herirlas- Puede llamar:- 988 line especial de crisis, pida alguien en espanol- Plascencia hija Bambi Bentley - [phone]- Plascencia hermana Trina esta al lado- Xi amigas y amigos de la nazario- A [facility] a - Nos ponemos de acuerdo que nos va a llamar si tiene pensamientos de hacerse jacinta, y que va a venir a nuestra ileana la semana proxima.Safety concerns discussed at length.Risk of sedation discussed.Risk in using along w many other sedating medications.Pt verbalized understanding.She has a psychiatrist and a therapist.Consulting w pharm doc and psych MD.RX: lorazepam- Concern about taking multiple PR[employer] SU[employer] CONS[employer]ANT depressants, especially in a patient with PASSIVE SI ad a (distant) hx of suicide attempt by ingesting substances (20+ years ago). Patient has contracted for safety, has safety plan, denies active SI, denies suicide plan.- Concern about taking multiple Anticholinergic agents- Omeprazole may increase serum concentration of Citalopram. Per UpToDate: Limit citalopram dose to a maximum of 20 mg/day if used with omeprazole. Patients using this combination should be monitored closely for evidence of citalopram toxicity (eg, serotonin syndrome, QT prolongation, etc.). Patient is taking 20 mg Citalopram.- Consulting w Pharm Doc, consulting with Psych Doc. - Safety discussed w pt. She talks to psychiatris Q3 months, encouraging to speak to her sooner. FU w pt in 1 week, CN and Robotics Specialist aware. CN will reach out.On Eliquis, metoprololfollows with cards and PCPAware of anticoag risksTaking Myrbetriq, oxybutuninFollowed by [facility]: metoprololstablefollows with cards10/20/22: reports low bp/symptomatic x 1 week. Denies CP or SOB. reports she finished a holter monitor 2 week series before symptoms occurred. Advised to call cardiology today and make in person appointment for urgent evaluation. SHe is compliant with metoprolol 12/11/22: BP much improved, continues to f/u with cardiology. Dr. Elizabeth Hernandez with PulmRX: ipratropiumstable RX: gwweoyay78/25/23: increased sour stomach PLAN: add famotidine to PPIRecommend famotidine 20 mg twice daily as needed for dyspepsia-- Smoking cessation encouranged-- Dietary and life style changes encouraged-- Calcium/Vit D and osteoporosis surveillance stressed-- Risk of watermaster PPI use discussed-- Antireflux diet: avoid tomatoes, citrus fruits, carbonated or caffeinated beverages, chocolate, peppermints, fatty foods.-- Elevate head of bed 6 on a brick or telephone book-- Do not eat within 4 hours of bedtime-- Strict diabetic monitoring and managementRX: vitamin d supplement follows with PCP12/09/22: rx for volataren today last fall 11/13 referral [facility] -unsteady gait [facility] [address], [place] [address]Cjuvq: [phone]/: Started PT yesterdaytried flonase and claritin without releifstart nasonexright ear pain and sinus pressure x 4 weeks. Start Augmentin and expect to feel better in 48-72 hrs - call if you are not improving. ER if you are short of breath or weak.Rest. Increase fluids to help your immune system - tea, broth, water, diluted juice. Raw local honey 1 TBSP throughout day has natural antimicrobial properties (not the grocery store kind)Steam shower 15min before bed and few times / day to open airway and clear congestion. Stop Afrin as can worsen your congestion after using 3 + days. Inhaler puffer 4/ day for bronchodilation 2023-06-17 11:34:19 Phone (patient, pare nt, or guardian); 5-10 minutes of medical discussion (no modifier 95)SBP 130-139 (3075F)DBP 80-89 (3079F)BMI obtained (3008F)Continue to see PCP. Follow-up with Herlinda as needed for any acute or disease education needs that may arise 08/12.PHQ-9: 19 - Moderately severe.JANNA-7: 13 - ModerateHas had grief/deaths in the family, several in the last 2-3 years f close relatives.Reports suicide attempt, distant, circa 2001. BuspironeCitalopramLorazepamMirtazapineQuetiapineSees or talks to therapist every other week, psych every 3 months.She is doing much better; her depression has lessened. 12/11/22: new Psychiatry Jihan Raquel 1997 - tried to overdose/poison, was in hospital at least overnight. No attempts since.Denies plans, denies active thoughts.Safety plan:- When she has thoughts, tries to distract and occupy herself.- Thinks about her daughters - would not want to hurt them so would not go through with it to spare them the pain.- Emergency contacts, in crisis:-- Daughter Bambi Bentley - [phone]-- [phone] suicide and crisis hotline - ask for Kazakh speaker-- Her sister Sister Trina lives next door -- [facility] -- Has friends from judaism whom she can call and on whom she leans.-- Contracts to reach out to us if she has active SIIn Kazakh:--PLAN DE SEGURIDAD:- Cuando le den pensamientos malos, trate de distraerse.- Piense en xi hijas y melodie no quiere herirlas- Puede llamar:- 988 line especial de crisis, pida alguien en espanol- Plascencia hija Bambi Bentley - [phone]- Plascencia hermana Trina esta al lado- Xi amigas y amigos de la nazario- [facility] - Nos ponemos de acuerdo que nos va a llamar si tiene pensamientos de hacerse jacinta, y que va a venir a nuestra ileana la semana proxima.Safety concerns discussed at length.Risk of sedation discussed.Risk in using along w many other sedating medications.Pt verbalized understanding.She has a psychiatrist and a therapist.Consulting w pharm doc and psych MD.RX: lorazepam- Concern about taking multiple [employer] depressants, especially in a patient with PASSIVE SI ad a (distant) hx of suicide attempt by ingesting substances (20+ years ago). Patient has contracted for safety, has safety plan, denies active SI, denies suicide plan.- Concern about taking multiple Anticholinergic agents- Omeprazole may increase serum concentration of Citalopram. Per UpToDate: Limit citalopram dose to a maximum of 20 mg/day if used with omeprazole. Patients using this combination should be monitored closely for evidence of citalopram toxicity (eg, serotonin syndrome, QT prolongation, etc.). Patient is taking 20 mg Citalopram.- Consulting w Pharm Doc, consulting with Psych Doc. - Safety discussed w pt. She talks to psychiatris Q3 months, encouraging to speak to her sooner. FU w pt in 1 week, CN and Robotics Specialist aware. CN will reach out.On Eliquis, metoprololfollows with cards and PCPAware of anticoag risksTaking Myrbetriq, oxybutuninFollowed by [facility]: metoprololstablefollows with cards10/20/22: reports low bp/symptomatic x 1 week. Denies CP or SOB. reports she finished a holter monitor 2 week series before symptoms occurred. Advised to call cardiology today and make in person appointment for urgent evaluation. SHe is compliant with metoprolol 12/11/22: BP much improved, continues to f/u with cardiology. Dr. Elizabeth Hernandez with [facility]: ipratropiumstable RX: lqepkozz62/25/23: increased sour stomach PLAN: add famotidine to PPIRecommend famotidine 20 mg twice daily as needed for dyspepsia-- Smoking cessation encouranged-- Dietary and life style changes encouraged-- Calcium/Vit D and osteoporosis surveillance stressed-- Risk of watermaster PPI use discussed-- Antireflux diet: avoid tomatoes, citrus fruits, carbonated or caffeinated beverages, chocolate, peppermints, fatty foods.-- Elevate head of bed 6 on a brick or telephone book-- Do not eat within 4 hours of bedtime-- Strict diabetic monitoring and managementRX: vitamin d supplement follows with PCP12/09/22: rx for volataren today last fall 11/13 [facility] -[facility]steady [facility] [address], [place] [address]Sraej: [phone]: Started PT yesterdaytried caroline and jeanne without releifstart nasonexWhen member to call: 1. If bp is elevated sbp>150; dbp>90 or symptomatic-h/a, dizziness, cp, sob. 2. if there is a fall 3. if BS >300 or BS<90 or symptomatic; i.e., dizzy, off balance , shaky, general weakness. 4. if UTI symptoms arise-urinary frequency, dysuria, low abd pain. 5. if pain in knees increases/ or joint pain increased [facility]. Follow-up with Herlinda as needed for any acute or disease education needs that may arise 08/12.what should be done when the member calls: see each individual diagnosis for contingency planstart triamcinolonereferral to ENT for f/u if symptoms continue 2023-07-10 12:44:55 Medication Review by prescribing provider or pharmacist documented (1160F)Medication List Documented (1159F)Functional Status Assessed (1170F)Advance Care Directive Advance care planning discussion documented in the medical record (1158F)BMI obtained (3008F)SBP 130-139 (3075F)DBP 80-89 (3079F)Televideo 30-39min; chronic exacerbation, 2 stable chronic or 1 acute illness add modifier 95Advance care planning discussed and documented ? advance care plan or surrogate decision-maker was documented in the medical record. (1123F)Pain Assessment - Pain Documented (1125F)Continue to see PCP. [facility] for any acute or disease education needs that may arise.PHQ-9: 19 - Moderately severe.JANNA-7: 13 - ModerateHas had grief/deaths in the family, several in the last 2-3 years f close relatives.Reports suicide attempt, distant, circa 2001. BuspironeCitalopramLorazepamMirtazapineQuetiapineSees or talks to therapist every other week, psych every 3 months.She is doing much better; her depression has lessened. 07/10/23: continues to be followed by Psychiatry Jihan García 1997 - tried to overdose/poison, was in hospital at least overnight. No attempts since.Denies plans, denies active thoughts.Safety plan:- When she has thoughts, tries to distract and occupy herself.- Thinks about her daughters - would not want to hurt them so would not go through with it to spare them the pain.- Emergency contacts, in crisis:-- Daughter Bambi Bentley - [phone]-- [phone] suicide and crisis hotline - ask for Kazakh speaker-- Her sister Sister Trina lives next door -- [facility] -- Has friends from judaism whom she can call and on whom she leans.-- Contracts to reach out to us if she has active SIIn [place]:--PLAN DE SEGURID[place]:- Cuando le den pensamientos malos, trate de distraerse.- Piense en xi hijas y melodie no quiere herirlas- Puede llamar:- 988 line especial de crisis, pida alguien en espanol- Plascencia hija Bambi Bentley - [phone]- Plascencia hermana Trina esta al lado- Xi amigas y amigos de la nazario- [facility] - Nos ponemos de acuerdo que nos va a llamar si tiene pensamientos de hacerse jacinta, y que va a venir a nuestra ileana la semana proxima.Safety concerns discussed at length.Risk of sedation discussed.Risk in using along w many other sedating medications.Pt verbalized understanding.She has a psychiatrist and a therapist.Consulting w pharm doc and psych MD.RX: lorazepam- Concern about taking multiple [employer] depressants, especially in a patient with PASSIVE SI ad a (distant) hx of suicide attempt by ingesting substances (20+ years ago). Patient has contracted for safety, has safety plan, denies active SI, denies suicide plan.- Concern about taking multiple Anticholinergic agents- Omeprazole may increase serum concentration of Citalopram. Per UpToDate: Limit citalopram dose to a maximum of 20 mg/day if used with omeprazole. Patients using this combination should be monitored closely for evidence of citalopram toxicity (eg, serotonin syndrome, QT prolongation, etc.). Patient is taking 20 mg Citalopram.- Consulting w Pharm Doc, consulting with Psych Doc. - Safety discussed w pt. She talks to psychiatris Q3 months, encouraging to speak to her sooner. FU w pt in 1 week, CN and Robotics Specialist aware. CN will reach out.On Eliquis, metoprololfollows with cards and PCPAware of anticoag risksTaking Myrbetriq, oxybutuninFollowed by Uroat risk for UTICONTINGENCY PLANMember to call for the following symptoms: Pain with urinatingPlanned intervention: Place order for urinalysis and culture; family to take sample to lab/ Bactrim DS BID x3dRX: metoprololstablefollows with cards10/20/22: reports low bp/symptomatic x 1 week. Denies CP or SOB. reports she finished a holter monitor 2 week series before symptoms occurred. Advised to call cardiology today and make in person appointment for urgent evaluation. SHe is compliant with metoprolol 12/11/22: BP much improved, continues to f/u with cardiology. Dr. Elizabeth BaileyCONTINGENCY PLANMember to call for the following symptoms: Unable to walk without stopping due to difficulty breathing/ WheezingPlanned intervention: Increase use of albuterol inhaler to q2h PRN cough, breathlessness/ prednisone taper 40mg x 3 days, 30mg x 3 days, 20mg x 3 days, 10mg x 3 dayschange in sputum: doxy 100mg BID x 7 daysfollows with PulmRX: ipratropiumstable RX: qvvqmepy62/25/23: increased sour stomach PLAN: add famotidine to PPIRecommend famotidine 20 mg twice daily as needed for dyspepsia-- Smoking cessation encouranged-- Dietary and life style changes encouraged-- Calcium/Vit D and osteoporosis surveillance stressed-- Risk of half-way PPI use discussed-- Antireflux diet: avoid tomatoes, citrus fruits, carbonated or caffeinated beverages, chocolate, peppermints, fatty foods.-- Elevate head of bed 6 on a brick or telephone book-- Do not eat within 4 hours of bedtime-- Strict diabetic monitoring and managementRX: vitamin d supplement follows with PCP12/09/22: rx for volataren today last fall 11/13 [facility] -unsteady gait [facility] [address], [place] [address]Jemde: [phone]: Started PT yesterdaytried flonase and claritin without releifstart nasonexWhen member to call: 1. If bp is elevated sbp>150; dbp>90 or symptomatic-h/a, dizziness, cp, sob. 2. if there is a fall 3. if BS >300 or BS<90 or symptomatic; i.e., dizzy, off balance , shaky, general weakness. 4. if UTI symptoms arise-urinary frequency, dysuria, low abd pain. 5. if pain in knees increases/ or joint pain increased Please remember to call CBContinue to see PCP. Follow-up with [facility] as needed for any acute or disease education needs that may arise 08/12.what should be done when the member calls: see each individual diagnosis for contingency planstart triamcinolonereferral to ENT for f/u if symptoms continueMDP-09/19/21 Thoracic aortic aneurysmrecommend high intensity statin Advised to eat a healthy diet include emphasizing fruits, vegetables, whole grains, poultry, fish and nuts and limiting sugary foods and beverages. Eating this way may help increase fiber, which is also beneficial. A diet high in fiber can help lower cholesterol levels by as much as 10 percent. DASH diet. Increase exercise to 30-45 min q day. Decrease sugary drinks, stop soda intake. Limit ETOH intake. If you smoke, quit smoking.Pulmonary nodule 1 cm or greater in diameter [R91.1] 06/20/2022bnormal chest CT [R93.89] 10/29/2021non-smoker never smoker, who has been followed with serial CT scans for a cluster of nodules within the right upper/right middle lobe. Subsequent CT scans began to show some calcifications within this area which tends to indicate a benign process. She was last seen by Dr. Pope in follow-up in August 2022 who recommended a 6-month CT scan. Patient now follows up after that follow-up scaMost recent CT chest shows that the previously identified opacities in the right middle lobe has decreased in size somewhat now measuring 12 mm (previously 14 mm). This likely represents a benign process, however given that has not cleared completely I will follow this up with a repeat CT chest in 6 months, July 2023.myrbetricat risk for UTIsee contingency plan for urinary incontinencewas on Allendronate for 2 years, was taken off as was having GI issues. Swicthed over to Reclast and had x 2.. last dose in 2019.Because of pandemic she has missed reclast, had DXA scan in 04/2021 and there was a decline. Prior to that in 2018 there was stability.She takes calcium for diet and takes vitamin D.agreed on prolia and was given a dose x 1 per pt. However she has been having dental procedure, has had implant x 2. States is done with dental work now. She did have falls since last visit but no fx.Postmenopausal women should get adequate calcium from dietary intake alone approximately 1200 mg daily. If you are getting 1200mg dailty, do not need to take calcium supplements. Women with inadequate dietary intake should take supplemental elemental calcium generally 500 to 1000 mg/day, in divided doses at mealtime, such that their total calcium intake (diet plus supplements) approximates 1200 mg/day. Take Vitamin D3 supplement of 5,000 IU per day. And increase wt bearing exercise. If you smoke, quit smoking.Dementia (HCC) [F03.90] 3currently not on any medicationFAST score 07/10/23: 3 Goals Date Goal 2022-03-25 Remember to 2022-03-25 Remember your safety plan 2022-03-25 Remember safety plan 2022-03-25 Call me if 2022-03-25 Call me if you have a crisis 2022-03-25 Call me if you have a crisis 2022-03-25 Keep it up Health Concerns Date Concern 2023-07-10 Visit completed richmond chaves audio and video. Patient/Guardian agreed to visit via telehealth. Today, patient has chief complaint of: follow up care and comprehensive review.Reviewed Allergies, Medications, Active Medical conditions, past medical/surgical history, Social history. 2023-07-10 Most recent hospital stay(s) or ER visit(s) and precipitating factors: none in the last month 2023-07-10 Open HEDIS Measure r evdamirw: done 2023-07-10 f/u PCP Anisha Kimble 09/17/23; f/u ENDO 09/30/23; mammo scheduled 11/13/23
== END 2024-09-19 11:27 | disposition home or self-care (01) ==
LOC: HO.HSMS 10:32
PROVIDERS: PCP Internal Medicine; Visit Provider Nurse Practitioner Family
DX: G43.009 Migraine without aura, not intractable, without status migrainosus (principal); R41.89 Other symptoms and signs involving cognitive functions and awareness; D32.0 Benign neoplasm of cerebral meninges
CPT/HCPCS: 99214

== ENCOUNTER → 2024-09-19 10:32 | Outpatient (BNVA) | payer OTHER, SELFPAY | PROVIDERS: PCP Internal Medicine; Visit Provider Nurse Practitioner Family | DX: G43.009 Migraine without aura, not intractable, without status migrainosus (principal); R41.89 Other symptoms and signs involving cognitive functions and awareness; D32.0 Benign neoplasm of cerebral meninges | CPT/HCPCS: 99212 ==